=== PATIENT | male | born 1995 | race Caucasian/White ===

== ENCOUNTER 2018-03-04 08:23 | Inpatient (IN) ==
[2018-03-04] MEDS ORDERED: Propofol 1000 mg/100 ml Inj 1,000 MG/100 ML BOTTLE ONE (08:49)
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
--- NOTE | 2018-03-04 09:05 | XR ---
EXAM DATE: 03/04/2018 8:59 AM EST AGE/SEX: 89 years / Male INDICATIONS: Post intubation CLINICAL DATA: This is the patient's subsequent encounter. Patient reports that signs and symptoms h ave been present for 1 day and indicates a pain score of Nonresponsive. MEDICAL/SURGICAL HISTORY: Non-responsive. Non-responsive. COMPARISON: [facility] – [place], [place]ST 1V SINGLE AP, 03/04/2018. . FINDINGS: Single AP view of the chest with the exam performed on a spinal board. There is an endotracheal tube positioned at the level of the clavicles, appropriate. The lungs are clear. Heart size is normal. No abnormal widening of the mediastinum. There is concern for a nondisplaced fracture involving the righ t lateral third and fourth ribs. CONCLUSION: Endotracheal tube at the level of the clavicles. Concern for nondisplaced fractures of the right thir d and fourth ribs. No visible pneumothorax. Electronically signed by: Narda Navarro MD 03/04/2018 9:04 AM EST
[2018-03-04 09:17] LABS: Baso # (Auto) 0.1 th/mm3 (0.0-0.2); Baso % (Auto) 0.4 % (0.0-2.0); Eos # (Auto) 0.1 th/mm3 (0.0-0.4); Eos % (Auto) 0.3 % (0.0-4.0); Hematocrit 40.6 % (39.0-51.0); Lymph # (Auto) 5.5 th/mm3 (1.0-4.8); Lymph % (Auto) 23.7 % (9.0-44.0); Mean Corpuscular HGB Conc 34.6 % (32.0-36.0); Mean Corpuscular Hemoglobin 30.1 pg (27.0-34.0); Mean Corpuscular Volume 87.2 fL (80.0-100.0); Mean Platelet Volume 9.4 fL (7.0-11.0); Mono % (Auto) 4.1 % (0.0-8.0); Neut # (Auto) 16.7 th/mm3 (1.8-7.7); Neut % (Auto) 71.5 % (16.0-70.0); Platelet Count 239 th/mm3 (150-450); Red Blood Count 4.66 mil/mm3 (4.50-5.90); Red Cell Distribution Width 12.7 % (11.6-17.2); White Blood Count 23.4 th/mm3 (4.0-11.0)
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
[2018-03-04 09:28] LABS: Activated Partial Thrombo Time 22.4 sec (23.4-31.7); INR 1.1 Ratio; Prothrombin Time 11.1 sec (9.8-11.6)
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
[2018-03-04 09:57] LABS: Lymphocytes 25 % (9-44); Monocytes 4 % (0-8); Platelet Estimate Normal (Normal); Platelet Morphology Normal (Normal)
[2018-03-04 09:58] LABS: RBC Morphology Normal (Normal)
[2018-03-04] MEDS ORDERED: levETIRAcetam 1000mg/100mL Inj 100 ML IV.SIG ONE (10:00)
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
[2018-03-04] MEDS ORDERED: Potassium Chloride 25 MEQ Effervescent Tablet PO PRN (10:21)
[2018-03-04] MEDS ORDERED: Potassium Chlor 20 mEq Premix 20 MEQ/100 ML PIGGYBACK IV.SIG PRN ×2 (10:21)
[2018-03-04] MEDS ORDERED: Magnesium Sulfate Inj 4 GM in Sodium Chlor 0.9% Inj 92 ML IV.SIG PRN (10:21)
[2018-03-04] MEDS ORDERED: Potassium Phosphate 500 MG Soluble Tablet PO PRN ×2 (10:21)
[2018-03-04] MEDS ORDERED: Sodium Phosphate Inj 30 MMOL in Sodium Chlor 0.9% Inj 250 ML IV.SIG PRN (10:21)
[2018-03-04] MEDS ORDERED: Potassium Chlor 40 mEq Premix 40 MEQ/100 ML PIGGYBACK IV.SIG PRN ×2 (10:21)
[2018-03-04] MEDS ORDERED: Magnesium Sulfate Inj 2 GM in Sodium Chlor 0.9% Inj 96 ML IV.SIG PRN (10:21)
[2018-03-04] MEDS ORDERED: Magnesium Oxide 400 MG Tablet PO PRN (10:21)
[2018-03-04] MEDS ORDERED: Potassium Phosphate Inj 30 MMOL in Sodium Chlor 0.9% Inj 250 ML IV.SIG PRN (10:21)
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
[2018-03-04 11:35] LABS: ABG Base Excess -4.6 mmol/L (-2-2); ABG PCO2 44 mmHg (38-42); ABG PO2 536 mmHg (61-120)
[2018-03-04] MEDS: fentaNYL 10 mcg/mL Premix Drip 2,500 MCG/250 ML BAG IV.SIG PRN (12:00)
[2018-03-04] MEDS: Propofol 1000 mg/100 ml Inj 1,000 MG/100 ML BOTTLE IV.CONT PRN ×2 (12:01→13:52)
[2018-03-04] MEDS: Sod Chloride 0.9% Inj 1,000 ML IV.CONT SCH ×2 (12:02→17:03)
[2018-03-04] MEDS: Oral Hygiene Kit OROPHARYNG SCH ×2 (12:02→15:57)
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
[2018-03-04 12:47] LABS: Bilirubin,Urine Negative (Negative); Clarity,Urine Clear (Clear); Color,Urine Yellow (Yellw/Straw); Glucose,Urine (UA) 50 mg/dL (Negative); Leukocyte Esterase,Urine Negative (Negative); Mucus,Urine Few /lpf (Occasional); Nitrite,Urine Negative (Negative); Specific Gravity,Urine 1.056 (1.002-1.035); Squamous Epithelial Cell,Urine <1 /hpf (0-5)
[2018-03-04 12:52] LABS: Amphetamine Screen,Urine Neg (Neg); Barbiturate Screen,Urine Neg (Neg); Cannabinoid Screen,Urine Neg (Neg); Cocaine Screen,Urine Neg (Neg)
[2018-03-04 13:06] LABS: Opiate Screen,Urine Neg (Neg)
[2018-03-04] MEDS: Pantoprazole Inj 40 MG Vial IV.PUSH SCH (13:18)
[2018-03-04 13:22] LABS: Carbon Dioxide 24.6 meq/L (21.0-32.0); Potassium 3.8 meq/L (3.5-5.1)
[2018-03-04 13:39] LABS: Calcium-Albumin Corrected 7.6 mg/dL (8.5-10.1)
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
[2018-03-04] MEDS: Acetaminophen 325 MG Tablet PO PRN (17:30)
[2018-03-04 18:05] LABS: Sodium 142 meq/L (136-145)
--- NOTE | 2018-03-04 18:49 | MP ---
cc: Shauna Cordoba MD DATE OF OPERATION: PREOPERATIVE DIAGNOSIS: Brain trauma. POSTOPERATIVE DIAGNOSIS: Brain trauma. PROCEDURE: Triple lumen placement, left subclavian. SURGEON: Shauna Cordoba MD ANESTHESIA: 1% Xylocaine. DESCRIPTION OF PROCEDURE: The patient was prepped and draped in the usual fashion. The area infiltrated with 1% Xylocaine. Needle inserted left subclavian vein. Through the needle, the J-wire was guided. Over the J-wire, dilator and triple lumen were placed. Triple lumen sutured in place with 2-0 silk. Chest x-ray obtained. Shauna Cordoba MD SJ/sv , 04:58 PM , 05:02 PM
--- NOTE | 2018-03-04 20:49 | MG ---
cc: Clem Avila MD ELECTROENCEPHALOGRAM RECORD NUMBER: [id number]. DESCRIPTION: Generalized 1-3 Hz delta activity with spindles noted, 10-30 microvolts. No significant lateralizing features. No significant driving with photic stimulation. Single lead EKG showing a sinus rhythm, tachycardia. INTERPRETATION: Moderate encephalopathy. Stage II sleep. She may be pharmacologically induced. No epileptic activity. Clinical correlation. Clem Avila MD MG/ts , 08:22 PM , 08:26 PM
[2018-03-04] MEDS: Docusate Sodium 100 MG Capsule PO SCH (20:56)
[2018-03-04] MEDS ORDERED: levETIRAcetam 500mg/100mL Inj 100 ML IV.SIG SCH (21:00)
[2018-03-04] MEDS: Chlorhexidine 0.12% Oral Kit 15 ML UDC OROPHARYNG SCH (21:00)
[2018-03-05] MEDS: Oral Hygiene Kit OROPHARYNG SCH ×4 (01:04→15:46)
[2018-03-05 01:08] LABS: Albumin 2.8 g/dL (3.4-5.0); Calcium 6.9 mg/dL (8.5-10.1); Carbon Dioxide 25.9 meq/L (21.0-32.0); Potassium 3.9 meq/L (3.5-5.1); Total Protein 5.5 g/dL (6.4-8.2)
[2018-03-05] MEDS: Sod Chloride 0.9% Inj 1,000 ML IV.CONT SCH ×2 (03:04→16:13)
[2018-03-05] MEDS: Chlorhexidine Gluconate 2% 1 Pack (2 Cloths) TOPICAL SCH (03:07)
[2018-03-05] MEDS ORDERED: Chlorhexidine Gluconate 2% 1 Pack (2 Cloths) TOPICAL PRN (04:00)
[2018-03-05 05:59] LABS: ABG Base Excess -1.7 mmol/L (-2-2); ABG PCO2 41 mmHg (38-42); ABG PO2 136 mmHg (61-120)
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
[2018-03-05 06:36] LABS: Baso % (Auto) 0.1 % (0.0-2.0); Hematocrit 24.6 % (39.0-51.0); Hemoglobin 8.8 gm/dL (13.0-17.0); Lymph # (Auto) 0.9 th/mm3 (1.0-4.8); Lymph % (Auto) 8.8 % (9.0-44.0); Mean Corpuscular HGB Conc 35.9 % (32.0-36.0); Mean Corpuscular Hemoglobin 30.6 pg (27.0-34.0); Mean Corpuscular Volume 85.4 fL (80.0-100.0); Mean Platelet Volume 8.8 fL (7.0-11.0); Mono # (Auto) 0.8 th/mm3 (0.0-0.9); Mono % (Auto) 8.4 % (0.0-8.0); Neut # (Auto) 8.3 th/mm3 (1.8-7.7); Neut % (Auto) 82.7 % (16.0-70.0); Platelet Count 116 th/mm3 (150-450); Red Blood Count 2.88 mil/mm3 (4.50-5.90); White Blood Count 10.1 th/mm3 (4.0-11.0)
[2018-03-05 06:51] LABS: Sodium 142 meq/L (136-145)
[2018-03-05] MEDS: Chlorhexidine 0.12% Oral Kit 15 ML UDC OROPHARYNG SCH ×2 (08:00→20:04)
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
[2018-03-05] MEDS ORDERED: levETIRAcetam 500mg/100mL Inj 100 ML IV.SIG SCH (09:00)
[2018-03-05] MEDS: Docusate Sodium 100 MG Capsule PO SCH ×2 (09:58→20:18)
[2018-03-05] MEDS: Pantoprazole Inj 40 MG Vial IV.PUSH SCH (09:59)
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
[2018-03-05 12:20] LABS: Sodium 144 meq/L (136-145)
[2018-03-05] MEDS: Propofol 1000 mg/100 ml Inj 1,000 MG/100 ML BOTTLE IV.CONT PRN (15:21)
[2018-03-05] MEDS: fentaNYL 10 mcg/mL Premix Drip 2,500 MCG/250 ML BAG IV.SIG PRN (15:21)
--- NOTE | 2018-03-05 15:38 | ECG ---
Date Performed: 03/04/2018 Time Performed: 09:44:06 PTAGE: 89 years EKG: Sinus tachycardia. Right bundle branch block Nonspecific ST wave change Abnormal ECG NO PREVIOUS TRACING DOCTOR: Ayush Laird Interpretating Date/Time 03/05/2018 15:37:57
[2018-03-06] MEDS: Oral Hygiene Kit OROPHARYNG SCH ×4 (00:07→16:31)
[2018-03-06 00:30] LABS: Albumin 2.3 g/dL (3.4-5.0); Calcium 7.2 mg/dL (8.5-10.1); Potassium 3.7 meq/L (3.5-5.1); Total Protein 5.3 g/dL (6.4-8.2)
[2018-03-06] MEDS: Chlorhexidine Gluconate 2% 1 Pack (2 Cloths) TOPICAL SCH (04:07)
--- NOTE | 2018-03-06 04:45 | XR ---
EXAM DATE: 03/06/2018 4:32 AM EST AGE/SEX: 89 years / Male INDICATIONS: Respiratory distress. CLINICAL DATA: This is the patient's subsequent encounter. Patient reports that signs and symptoms h ave been present for 3 days and indicates a pain score of Nonresponsive. MEDICAL/SURGICAL HISTORY: . Intracranial hemorrhage. Thoracic fracture. None. COMPARISON: [facility] [place], CHEST 1V SINGLE AP, 03/05/2018. . FINDINGS: Single AP view the chest. Endotracheal tube, nasogastric tube, and left subclavian central venous cat heter remain in place. Decrease in right lung base opacity. No evidence of pleural effusion or pneumo thorax. Cardiomediastinal silhouette within normal limits. CONCLUSION: Decreased medial right lung base pulmonary parenchymal opacity. Electronically signed by: Pawan Win MD 03/06/2018 4:44 AM EST
[2018-03-06] MEDS: Propofol 1000 mg/100 ml Inj 1,000 MG/100 ML BOTTLE IV.CONT PRN ×2 (05:21→16:58)
[2018-03-06 05:30] LABS: ABG Base Excess 0.8 mmol/L (-2-2); ABG PCO2 40 mmHg (38-42); ABG PO2 167 mmHg (61-120)
[2018-03-06 06:23] LABS: Baso % (Auto) 0.2 % (0.0-2.0); Lymph # (Auto) 0.7 th/mm3 (1.0-4.8); Lymph % (Auto) 8.1 % (9.0-44.0); Mean Corpuscular Hemoglobin 30.8 pg (27.0-34.0); Mean Platelet Volume 8.8 fL (7.0-11.0); Mono # (Auto) 0.8 th/mm3 (0.0-0.9); Mono % (Auto) 9.5 % (0.0-8.0); Neut # (Auto) 7.1 th/mm3 (1.8-7.7); Neut % (Auto) 82.2 % (16.0-70.0); Platelet Count 97 th/mm3 (150-450); Red Blood Count 2.24 mil/mm3 (4.50-5.90); Red Cell Distribution Width 12.9 % (11.6-17.2); White Blood Count 8.6 th/mm3 (4.0-11.0)
[2018-03-06 06:30] LABS: Mean Corpuscular HGB Conc 36.2 % (32.0-36.0)
[2018-03-06 06:33] LABS: Hemoglobin 6.9 gm/dL (13.0-17.0)
[2018-03-06 06:45] LABS: Sodium 148 meq/L (136-145)
--- NOTE | 2018-03-06 06:53 | CT ---
EXAM DATE: 03/06/2018 6:47 AM EST AGE/SEX: 89 years / Male INDICATIONS: Evaluate left hip fracture. CLINICAL DATA: This is the patient's initial encounter. Patient reports that signs and symptoms have been present for 1 day and indicates a pain score of Nonresponsive. MEDICAL/SURGICAL HISTORY: Non-responsive. Non-responsive. RADIATION DOSE: 9.86 CTDI (mGy) ; Reconstructed from previous dataset, no dose COMPARISON: No prior exams available for comparison. TECHNIQUE: Multiple contiguous axial images were acquired using a multirow detector CT scanner witho ut contrast. Multiplanar reconstruction was performed in the sagittal and coronal planes. Using aut omated exposure control and adjustment of the mA and/or kV according to patient size, radiation dose was kept as low as reasonably achievable to obtain optimal diagnostic quality images. DICOM format i mage data is available electronically for review and comparison. FINDINGS: Comminuted fracture of the left acetabulum with involvement of the superior, medial, and posterior wa lls. 4.8 x 1.8 cm lateral superior acetabular bone fragment with 2.3 cm lateral displacement. Disrupt ion of the articular cortex is noted in multiple locations. There is posterior dislocation of the fem oral head and bone fragments interposed between the femoral head and acetabular articular surface. La rge left hip joint effusion. No evidence of fracture extension into the iliac wing or ischemia. Sacro iliac joints are within normal limits. Right hip is within normal limits. CONCLUSION: Comminuted acetabular fracture with posterior dislocation of the femoral head. Electronically signed by: Pawan Win MD 03/06/2018 6:52 AM EST
[2018-03-06] MEDS ORDERED: Sodium Chlor 0.9% Inj 250 ML IV.SIG SCH (08:00)
[2018-03-06] MEDS: Chlorhexidine 0.12% Oral Kit 15 ML UDC OROPHARYNG SCH ×2 (08:03→20:44)
[2018-03-06] MEDS: Docusate Sodium 100 MG Capsule PO SCH ×2 (08:03→20:18)
[2018-03-06] MEDS: Sod Chloride 0.9% Inj 1,000 ML IV.CONT SCH ×2 (08:12→11:22)
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
[2018-03-06 10:06] LABS: Platelet Morphology Normal (Normal)
[2018-03-06] MEDS: Pantoprazole Inj 40 MG Vial IV.PUSH SCH (10:26)
[2018-03-06 10:46] LABS: Hematocrit 25.3 % (39.0-51.0); Hemoglobin 8.8 gm/dL (13.0-17.0)
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
[2018-03-06] MEDS: Acetaminophen 325 MG Tablet PO PRN (20:44)
[2018-03-06] MEDS: fentaNYL 10 mcg/mL Premix Drip 2,500 MCG/250 ML BAG IV.SIG PRN (21:34)
[2018-03-07] MEDS: Propofol 1000 mg/100 ml Inj 1,000 MG/100 ML BOTTLE IV.CONT PRN ×4 (00:45→18:38)
[2018-03-07] MEDS: Oral Hygiene Kit OROPHARYNG SCH ×4 (01:56→17:35)
[2018-03-07] MEDS: Chlorhexidine Gluconate 2% 1 Pack (2 Cloths) TOPICAL SCH (04:17)
[2018-03-07 05:03] LABS: Baso % (Auto) 0.2 % (0.0-2.0); Eos % (Auto) 0.1 % (0.0-4.0); Hemoglobin 8.3 gm/dL (13.0-17.0); Lymph # (Auto) 0.9 th/mm3 (1.0-4.8); Lymph % (Auto) 10.2 % (9.0-44.0); Mean Corpuscular Volume 80.2 fL (80.0-100.0); Mean Platelet Volume 8.2 fL (7.0-11.0); Mono # (Auto) 0.8 th/mm3 (0.0-0.9); Mono % (Auto) 8.2 % (0.0-8.0); Neut # (Auto) 7.6 th/mm3 (1.8-7.7); Neut % (Auto) 81.3 % (16.0-70.0); Platelet Count 106 th/mm3 (150-450); Red Blood Count 2.86 mil/mm3 (4.50-5.90); Red Cell Distribution Width 17.8 % (11.6-17.2); White Blood Count 9.3 th/mm3 (4.0-11.0)
[2018-03-07 05:09] LABS: ABG Base Excess 1.8 mmol/L (-2-2); ABG PCO2 43 mmHg (38-42); ABG PO2 61 mmHg (61-120)
[2018-03-07] MEDS: Sod Chloride 0.9% Inj 1,000 ML IV.CONT SCH (05:14)
--- NOTE | 2018-03-07 05:14 | XR ---
EXAM DATE: 03/07/2018 5:02 AM EST AGE/SEX: 89 years / Male INDICATIONS: Respiratory distress. CLINICAL DATA: This is the patient's subsequent encounter. Patient reports that signs and symptoms h ave been present for 4 - 6 days and indicates a pain score of Nonresponsive. MEDICAL/SURGICAL HISTORY: . Intracranial hemorrhage. Thoracic fracture. None. COMPARISON: C, CHEST 1V SINGLE AP, 03/06/2018. . FINDINGS: Single AP view of the chest. Endotracheal tube, nasogastric tube, left subclavian central venous cath eter remain in place. Increased confluent diffuse right lung opacity with lower lung zone predominanc e. Mild lower lung zone left lung opacity now seen. CONCLUSION: Increased bilateral pulmonary opacity right greater than left. Difficult diagnosis is asymmetric pulm onary edema versus infection. Electronically signed by: Pawan iWn MD 03/07/2018 5:12 AM EST
[2018-03-07 05:16] LABS: Mean Corpuscular HGB Conc 36.2 % (32.0-36.0)
[2018-03-07 05:37] LABS: Albumin 2.3 g/dL (3.4-5.0); Calcium 7.2 mg/dL (8.5-10.1); Carbon Dioxide 26.5 meq/L (21.0-32.0); Potassium 3.4 meq/L (3.5-5.1); Total Protein 5.6 g/dL (6.4-8.2)
[2018-03-07] MEDS: Acetaminophen 325 MG Tablet PO PRN ×2 (06:04→18:30)
--- NOTE | 2018-03-07 06:45 | P.PNOP ---
Subjective Interval history: s/p left acetabulum fracture stabilizing. trauma has cleared patient for surgery Physical Exam Vital signs: Vital Signs 03/06/18 07:00 03/06/18 07:30 03/06/18 08:00 Temperature 100.8 F H 100.6 F H 100.6 F H Pulse Rate 103 H 108 H 105 H Respiratory Rate 19 24 18 Blood Pressure 137/65 141/66 H 133/65 Pulse Oximetry 100 100 100 03/06/18 08:30 03/06/18 08:39 03/06/18 08:53 Temperature 100.6 F H 100.6 F H Pulse Rate 99 H 94 H 95 H Respiratory Rate 18 18 18 Blood Pressure 130/65 130/65 Pulse Oximetry 100 100 100 03/06/18 09:00 03/06/18 09:04 03/06/18 09:06 Temperature 100.4 F H 100.6 F H 100.6 F H Pulse Rate 100 H 97 H 96 H Respiratory Rate 18 18 18 Blood Pressure 131/67 131/67 131/67 Pulse Oximetry 100 100 100 03/06/18 09:30 03/06/18 09:35 03/06/18 10:00 Temperature 100.4 F H 100.6 F H 100.4 F H Pulse Rate 98 H 93 H 95 H Respiratory Rate 18 18 18 Blood Pressure 129/65 129/65 128/67 Pulse Oximetry 100 100 100 03/06/18 10:07 03/06/18 11:00 03/06/18 12:00 Temperature 100.4 F H 100.6 F H 100.8 F H Pulse Rate 99 H 96 H 99 H Respiratory Rate 18 18 18 Blood Pressure 126/65 129/69 128/63 Pulse Oximetry 100 100 100 03/06/18 12:09 03/06/18 13:00 03/06/18 14:00 Temperature 100.9 F H 100.9 F H Pulse Rate 102 H 102 H Respiratory Rate 18 18 18 Blood Pressure 134/70 130/61 Pulse Oximetry 100 100 100 03/06/18 15:00 03/06/18 16:00 03/06/18 17:00 Temperature 100.8 F H 100.8 F H 100.9 F H Pulse Rate 105 H 111 H 110 H Respiratory Rate 18 18 18 Blood Pressure 132/69 136/64 135/64 Pulse Oximetry 100 99 97 03/06/18 17:20 03/06/18 17:21 03/06/18 18:00 Temperature 101.1 F H Pulse Rate 110 H 114 H Respiratory Rate 18 18 18 Blood Pressure 134/65 Pulse Oximetry 98 98 03/06/18 19:00 03/06/18 20:00 03/06/18 20:25 Temperature 101.1 F H 101.1 F H 101.5 F H Pulse Rate 106 H 103 H 138 H Respiratory Rate 18 18 30 H Blood Pressure 135/67 136/67 174/80 H Pulse Oximetry 100 100 03/06/18 20:29 03/06/18 20:36 03/06/18 20:41 Temperature 101.7 F H 101.7 F H Pulse Rate 121 H 109 H 108 H Respiratory Rate 18 18 18 Blood Pressure 145/58 H 150/69 H Pulse Oximetry 98 03/06/18 20:45 03/06/18 21:00 03/06/18 21:15 Temperature 101.8 F H 101.8 F H 101.7 F H Pulse Rate 110 H 114 H 111 H Respiratory Rate 18 18 18 Blood Pressure 150/69 H 143/63 H 128/56 L Pulse Oximetry 97 97 03/06/18 21:30 03/06/18 21:45 03/06/18 22:00 Temperature 101.3 F H 100.9 F H 100.8 F H Pulse Rate 110 H 110 H 108 H Respiratory Rate 18 18 18 Blood Pressure 125/56 L 123/59 L 124/57 L Pulse Oximetry 98 98 98 03/06/18 22:15 03/06/18 22:30 03/06/18 22:45 Temperature 100.6 F H 100.4 F H 100.4 F H Pulse Rate 107 H 107 H 106 H Respiratory Rate 18 18 18 Blood Pressure 121/56 L 124/58 L 127/59 L Pulse Oximetry 98 98 98 03/06/18 23:00 03/06/18 23:15 03/06/18 23:30 Temperature 100.2 F H 100.0 F H 100.0 F H Pulse Rate 105 H 103 H 100 H Respiratory Rate 18 18 18 Blood Pressure 125/58 L 127/61 124/59 L Pulse Oximetry 99 99 100 03/06/18 23:45 03/07/18 00:00 03/07/18 00:15 Temperature 99.9 F H 99.9 F H 99.9 F H Pulse Rate 98 H 98 H 101 H Respiratory Rate 18 18 18 Blood Pressure 125/61 123/62 126/65 Pulse Oximetry 100 100 100 03/07/18 00:30 03/07/18 00:44 03/07/18 00:45 Temperature 100.0 F H 100.4 F H Pulse Rate 101 H 111 H Respiratory Rate 18 21 22 Blood Pressure 134/69 140/70 Pulse Oximetry 100 96 97 03/07/18 01:00 03/07/18 01:02 03/07/18 01:15 Temperature 100.6 F H 100.6 F H 100.8 F H Pulse Rate 106 H 105 H 105 H Respiratory Rate 20 23 18 Blood Pressure 128/63 127/66 Pulse Oximetry 95 95 95 03/07/18 01:30 03/07/18 01:45 03/07/18 02:00 Temperature 100.8 F H 100.6 F H 100.4 F H Pulse Rate 103 H 103 H 103 H Respiratory Rate 18 18 18 Blood Pressure 130/66 126/61 133/63 Pulse Oximetry 96 97 98 03/07/18 02:15 03/07/18 02:30 03/07/18 02:45 Temperature 100.2 F H 100.2 F H 100.2 F H Pulse Rate 102 H 102 H 100 H Respiratory Rate 18 18 18 Blood Pressure 134/62 124/59 L 126/62 Pulse Oximetry 99 99 100 03/07/18 03:00 03/07/18 03:15 03/07/18 03:30 Temperature 100.4 F H 100.4 F H 100.4 F H Pulse Rate 97 H 97 H 97 H Respiratory Rate 18 18 10 L Blood Pressure 125/60 122/60 122/60 Pulse Oximetry 99 100 99 03/07/18 03:45 03/07/18 04:00 03/07/18 04:15 Temperature 100.4 F H 100.6 F H 100.8 F H Pulse Rate 98 H 100 H 102 H Respiratory Rate 0 L 0 L 0 L Blood Pressure 125/62 128/61 135/65 Pulse Oximetry 100 100 99 03/07/18 04:30 03/07/18 04:45 03/07/18 05:00 Temperature 100.9 F H 101.1 F H 101.3 F H Pulse Rate 103 H 102 H 103 H Respiratory Rate 18 18 18 Blood Pressure 133/66 137/68 139/69 Pulse Oximetry 99 98 98 03/07/18 05:15 03/07/18 05:30 03/07/18 05:45 Temperature 101.3 F H 101.5 F H 101.3 F H Pulse Rate 100 H 102 H 104 H Respiratory Rate 18 18 19 Blood Pressure 139/68 135/63 138/65 Pulse Oximetry 97 100 99 03/07/18 06:00 Temperature 101.3 F H Pulse Rate 96 H Respiratory Rate 18 Blood Pressure 129/62 Pulse Oximetry 99 Intake & Output 03/06/18 03/06/18 03/07/18 06:59 18:59 06:59 Intake Total 705 / 705 2358 / 2358 2049 / 2049 Output Total 575 / 575 650 / 650 500 / 500 Balance 130 / 130 1708 / 1708 1550 / 1550 Weight 73.5 kg 83.7 kg Intake: IV 705 / 705 1385 / 1385 1555 / 1555 Diprivan 1000 mg/100 ml Inj 1, 100 / 100 100 / 100 200 / 200 000 mg In 100 ml @ 5 MCG/KG/MIN 1.989 mls/hr IV.CONT TITRATE PRN Rx#:[id number] NS Inj 1,000 ML @ 50 mls/hr IV. 1000 / 1000 1000 / 1000 CONT .Q20H [facility] Rx#:[id number] Sodium Chloride 3% Inj 500 ML @ 500 / 500 30 / 30 30 mls/hr IV.SIG CONT PRN Rx#: [id number] NS Inj 250 ML @ 15 mls/hr IV. 150 / 150 SIG ONCE [facility] Rx#:[id number] fentaNYL 10 mcg/mL Premix Drip 250 / 250 2,500 mcg In 250 ml @ 50 MCG/HR 5 mls/hr IV.SIG TITRATE PRN Rx #:[id number] Keppra Inj 500 MG In NS Inj 100 105 / 105 105 / 105 105 / 105 ML @ 400 mls/hr IV.SIG Q12H [facility] Rx#:[id number] Tube Feeding 173 / 173 495 / 495 Intake (Blood Product) Amt 800 / 800 Rbc As-3 Leukoreduced Unit 400 / 400 [id number] Rbc As-3 Leukoreduced Unit 400 / 400 [id number] Output: Stool 0 / 0 0 / 0 Urine Amount (Catheter) 475 / 475 650 / 650 500 / 500 Indwelling Urethral Catheter 475 / 475 650 / 650 500 / 500 Gastric Drainage 100 / 100 0 / 0 Right Nare Nasogastric Tube 100 / 100 0 / 0 Other: Date of Last Bowel Movement 03/07/18 # Bowel Movements 0 0 2 Narrative: LLE: +cap refill distally. localizes to pain when hip moved. - Urinary Catheter Management Indwelling Urethral Catheter Cath placed during this visit: yes Reason for continuing: Hourly intake/output Insertion date: 03/04/18 Insertion time: 10:00 Results - Labs CBC & Chem 7: 03/07/18 04:40 03/07/18 04:40 Laboratory Results - last 24 hr 03/06/18 03/06/18 03/06/18 05:32 05:32 07:29 WBC RBC Hgb Hct MCV MCH MCHC RDW Plt Count MPV Prelim Diff (Auto) Neut % (Auto) Lymph % (Auto) Marshall % (Auto) Eos % (Auto) Baso % (Auto) Neut # (Auto) Lymph # (Auto) Marshall # (Auto) Eos # (Auto) Baso # (Auto) WBC Differential . Diff Scan Auto diff confirmed Differential Comment Platelet Estimate Low L Platelet Morphology Normal Puncture Site Patient Temperature O2 Saturation ABG pH ABG pCO2 ABG pO2 ABG HCO3 ABG O2 Content ABG Base Excess ABG Methemoglobin Nico Test Hemoglobin Carboxyhemoglobin O2 Delivery Device Vent Setting Inspired O2 Critical Value Sodium 148 H Potassium Chloride Carbon Dioxide Anion Gap BUN Creatinine Estimated GFR Random Glucose Osmolality 302 H Calcium Prot Corrected Calcium Total Bilirubin AST ALT Alkaline Phosphatase Total Protein Albumin Blood Type Blood Type Recheck Antibody Screen MTS Gel Crossmatch See Detail Bld Prod Order Comment 03/06/18 03/06/18 03/07/18 07:36 10:30 04:40 WBC 9.3 RBC 2.86 L Hgb 8.8 L 8.3 L Hct 25.3 L 23.0 L MCV 80.2 D MCH 29.0 MCHC 36.2 H RDW 17.8 H D Plt Count 106 L MPV 8.2 Prelim Diff (Auto) Slide review pending Neut % (Auto) 81.3 H Lymph % (Auto) 10.2 Marshall % (Auto) 8.2 H Eos % (Auto) 0.1 Baso % (Auto) 0.2 Neut # (Auto) 7.6 Lymph # (Auto) 0.9 L Marshall # (Auto) 0.8 Eos # (Auto) 0.0 Baso # (Auto) 0.0 WBC Differential Diff Scan Differential Comment . Platelet Estimate Platelet Morphology Puncture Site Patient Temperature O2 Saturation ABG pH ABG pCO2 ABG pO2 ABG HCO3 ABG O2 Content ABG Base Excess ABG Methemoglobin Nico Test Hemoglobin Carboxyhemoglobin O2 Delivery Device Vent Setting Inspired O2 Critical Value Sodium Potassium Chloride Carbon Dioxide Anion Gap BUN Creatinine Estimated GFR Random Glucose Osmolality Calcium Prot Corrected Calcium Total Bilirubin AST ALT Alkaline Phosphatase Total Protein Albumin Blood Type Blood Type Recheck Antibody Screen MTS Gel Crossmatch See Detail Bld Prod Order Comment Cancelled 03/07/18 03/07/18 03/07/18 04:40 04:47 05:01 WBC RBC Hgb Hct MCV MCH MCHC RDW Plt Count MPV Prelim Diff (Auto) Neut % (Auto) Lymph % (Auto) Marshall % (Auto) Eos % (Auto) Baso % (Auto) Neut # (Auto) Lymph # (Auto) Marshall # (Auto) Eos # (Auto) Baso # (Auto) WBC Differential Diff Scan Differential Comment Platelet Estimate Platelet Morphology Puncture Site Left radial Patient Temperature 98.6 O2 Saturation 89 L* ABG pH 7.40 ABG pCO2 43 H ABG pO2 61 ABG HCO3 26 ABG O2 Content 11.7 L ABG Base Excess 1.8 ABG Methemoglobin 1.2 Nico Test Present Hemoglobin 9.3 L Carboxyhemoglobin 1.5 O2 Delivery Device Ventilator Vent Setting See comments Inspired O2 30 Critical Value Yes Sodium 146 H Potassium 3.4 L Chloride 115 H Carbon Dioxide 26.5 Anion Gap 5 BUN 13 Creatinine 0.76 Estimated GFR 88 L Random Glucose 152 H Osmolality Calcium 7.2 L* Prot Corrected Calcium 8.0 L Total Bilirubin 0.5 AST 132 H ALT 75 Alkaline Phosphatase 82 Total Protein 5.6 L Albumin 2.3 L Blood Type O Positive Blood Type Recheck Not needed Antibody Screen Negative MTS Gel Crossmatch See Detail Bld Prod Order Comment - Imaging Impressions Hip CT 03/06/18 00:00 CONCLUSION: Comminuted acetabular fracture with posterior dislocation of the femoral head. Chest X-Ray 03/07/18 06:00 CONCLUSION: Increased bilateral pulmonary opacity right greater than left. Difficult diagnosis is asymmetric pulmonary edema versus infection. Assessment and Plan - Assessment and Plan 1) Left Acetabulum Fracture -10lbs bucks traction applied at bedside today -npo after MN -sign consents -plan for surgery with [facility] for ORIF of left acetabulum shruthi
--- NOTE | 2018-03-07 06:46 | P.PNOP ---
Subjective Interval history: s/p left acetabulum fx no changes Physical Exam Vital signs: Vital Signs 03/06/18 07:00 03/06/18 07:30 03/06/18 08:00 Temperature 100.8 F H 100.6 F H 100.6 F H Pulse Rate 103 H 108 H 105 H Respiratory Rate 19 24 18 Blood Pressure 137/65 141/66 H 133/65 Pulse Oximetry 100 100 100 03/06/18 08:30 03/06/18 08:39 03/06/18 08:53 Temperature 100.6 F H 100.6 F H Pulse Rate 99 H 94 H 95 H Respiratory Rate 18 18 18 Blood Pressure 130/65 130/65 Pulse Oximetry 100 100 100 03/06/18 09:00 03/06/18 09:04 03/06/18 09:06 Temperature 100.4 F H 100.6 F H 100.6 F H Pulse Rate 100 H 97 H 96 H Respiratory Rate 18 18 18 Blood Pressure 131/67 131/67 131/67 Pulse Oximetry 100 100 100 03/06/18 09:30 03/06/18 09:35 03/06/18 10:00 Temperature 100.4 F H 100.6 F H 100.4 F H Pulse Rate 98 H 93 H 95 H Respiratory Rate 18 18 18 Blood Pressure 129/65 129/65 128/67 Pulse Oximetry 100 100 100 03/06/18 10:07 03/06/18 11:00 03/06/18 12:00 Temperature 100.4 F H 100.6 F H 100.8 F H Pulse Rate 99 H 96 H 99 H Respiratory Rate 18 18 18 Blood Pressure 126/65 129/69 128/63 Pulse Oximetry 100 100 100 03/06/18 12:09 03/06/18 13:00 03/06/18 14:00 Temperature 100.9 F H 100.9 F H Pulse Rate 102 H 102 H Respiratory Rate 18 18 18 Blood Pressure 134/70 130/61 Pulse Oximetry 100 100 100 03/06/18 15:00 03/06/18 16:00 03/06/18 17:00 Temperature 100.8 F H 100.8 F H 100.9 F H Pulse Rate 105 H 111 H 110 H Respiratory Rate 18 18 18 Blood Pressure 132/69 136/64 135/64 Pulse Oximetry 100 99 97 03/06/18 17:20 03/06/18 17:21 11/19/18 18:00 Temperature 101.1 F H Pulse Rate 110 H 114 H Respiratory Rate 18 18 18 Blood Pressure 134/65 Pulse Oximetry 98 98 03/06/18 19:00 03/06/18 20:00 03/06/18 20:25 Temperature 101.1 F H 101.1 F H 101.5 F H Pulse Rate 106 H 103 H 138 H Respiratory Rate 18 18 30 H Blood Pressure 135/67 136/67 174/80 H Pulse Oximetry 100 100 03/06/18 20:29 03/06/18 20:36 03/06/18 20:41 Temperature 101.7 F H 101.7 F H Pulse Rate 121 H 109 H 108 H Respiratory Rate 18 18 18 Blood Pressure 145/58 H 150/69 H Pulse Oximetry 98 03/06/18 20:45 03/06/18 21:00 03/06/18 21:15 Temperature 101.8 F H 101.8 F H 101.7 F H Pulse Rate 110 H 114 H 111 H Respiratory Rate 18 18 18 Blood Pressure 150/69 H 143/63 H 128/56 L Pulse Oximetry 97 97 03/06/18 21:30 03/06/18 21:45 03/06/18 22:00 Temperature 101.3 F H 100.9 F H 100.8 F H Pulse Rate 110 H 110 H 108 H Respiratory Rate 18 18 18 Blood Pressure 125/56 L 123/59 L 124/57 L Pulse Oximetry 98 98 98 03/06/18 22:15 03/06/18 22:30 03/06/18 22:45 Temperature 100.6 F H 100.4 F H 100.4 F H Pulse Rate 107 H 107 H 106 H Respiratory Rate 18 18 18 Blood Pressure 121/56 L 124/58 L 127/59 L Pulse Oximetry 98 98 98 03/06/18 23:00 03/06/18 23:15 03/06/18 23:30 Temperature 100.2 F H 100.0 F H 100.0 F H Pulse Rate 105 H 103 H 100 H Respiratory Rate 18 18 18 Blood Pressure 125/58 L 127/61 124/59 L Pulse Oximetry 99 99 100 03/06/18 23:45 03/07/18 00:00 03/07/18 00:15 Temperature 99.9 F H 99.9 F H 99.9 F H Pulse Rate 98 H 98 H 101 H Respiratory Rate 18 18 18 Blood Pressure 125/61 123/62 126/65 Pulse Oximetry 100 100 100 03/07/18 00:30 03/07/18 00:44 03/07/18 00:45 Temperature 100.0 F H 100.4 F H Pulse Rate 101 H 111 H Respiratory Rate 18 21 22 Blood Pressure 134/69 140/70 Pulse Oximetry 100 96 97 03/07/18 01:00 03/07/18 01:02 03/07/18 01:15 Temperature 100.6 F H 100.6 F H 100.8 F H Pulse Rate 106 H 105 H 105 H Respiratory Rate 20 23 18 Blood Pressure 128/63 127/66 Pulse Oximetry 95 95 95 03/07/18 01:30 03/07/18 01:45 03/07/18 02:00 Temperature 100.8 F H 100.6 F H 100.4 F H Pulse Rate 103 H 103 H 103 H Respiratory Rate 18 18 18 Blood Pressure 130/66 126/61 133/63 Pulse Oximetry 96 97 98 03/07/18 02:15 03/07/18 02:30 03/07/18 02:45 Temperature 100.2 F H 100.2 F H 100.2 F H Pulse Rate 102 H 102 H 100 H Respiratory Rate 18 18 18 Blood Pressure 134/62 124/59 L 126/62 Pulse Oximetry 99 99 100 03/07/18 03:00 03/07/18 03:15 03/07/18 03:30 Temperature 100.4 F H 100.4 F H 100.4 F H Pulse Rate 97 H 97 H 97 H Respiratory Rate 18 18 10 L Blood Pressure 125/60 122/60 122/60 Pulse Oximetry 99 100 99 03/07/18 03:45 03/07/18 04:00 03/07/18 04:15 Temperature 100.4 F H 100.6 F H 100.8 F H Pulse Rate 98 H 100 H 102 H Respiratory Rate 0 L 0 L 0 L Blood Pressure 125/62 128/61 135/65 Pulse Oximetry 100 100 99 03/07/18 04:30 03/07/18 04:45 03/07/18 05:00 Temperature 100.9 F H 101.1 F H 101.3 F H Pulse Rate 103 H 102 H 103 H Respiratory Rate 18 18 18 Blood Pressure 133/66 137/68 139/69 Pulse Oximetry 99 98 98 03/07/18 05:15 03/07/18 05:30 03/07/18 05:45 Temperature 101.3 F H 101.5 F H 101.3 F H Pulse Rate 100 H 102 H 104 H Respiratory Rate 18 18 19 Blood Pressure 139/68 135/63 138/65 Pulse Oximetry 97 100 99 03/07/18 06:00 Temperature 101.3 F H Pulse Rate 96 H Respiratory Rate 18 Blood Pressure 129/62 Pulse Oximetry 99 Intake & Output 03/06/18 03/06/18 03/07/18 06:59 18:59 06:59 Intake Total 705 / 705 2358 / 2358 2049 / 2049 Output Total 575 / 575 650 / 650 500 / 500 Balance 130 / 130 1708 / 1708 1550 / 1550 Weight 73.5 kg 83.7 kg Intake: IV 705 / 705 1385 / 1385 1555 / 1555 Diprivan 1000 mg/100 ml Inj 1, 100 / 100 100 / 100 200 / 200 000 mg In 100 ml @ 5 MCG/KG/MIN 1.989 mls/hr IV.CONT TITRATE PRN Rx#:[id number] NS Inj 1,000 ML @ 50 mls/hr IV. 1000 / 1000 1000 / 1000 CONT .Q20H [facility] Rx#:[id number] Sodium Chloride 3% Inj 500 ML @ 500 / 500 30 / 30 30 mls/hr IV.SIG CONT PRN Rx#: [id number] NS Inj 250 ML @ 15 mls/hr IV. 150 / 150 SIG ONCE [facility] Rx#:[id number] fentaNYL 10 mcg/mL Premix Drip 250 / 250 2,500 mcg In 250 ml @ 50 MCG/HR 5 mls/hr IV.SIG TITRATE PRN Rx #:[id number] Keppra Inj 500 MG In NS Inj 100 105 / 105 105 / 105 105 / 105 ML @ 400 mls/hr IV.SIG Q12H [facility] Rx#:[id number] Tube Feeding 173 / 173 495 / 495 Intake (Blood Product) Amt 800 / 800 Rbc As-3 Leukoreduced Unit 400 / 400 [id number] Rbc As-3 Leukoreduced Unit 400 / 400 [id number] Output: Stool 0 / 0 0 / 0 Urine Amount (Catheter) 475 / 475 650 / 650 500 / 500 Indwelling Urethral Catheter 475 / 475 650 / 650 500 / 500 Gastric Drainage 100 / 100 0 / 0 Right Nare Nasogastric Tube 100 / 100 0 / 0 Other: Date of Last Bowel Movement 03/07/18 # Bowel Movements 0 0 2 Narrative: LLE: +bucks traction. +cap refill - Urinary Catheter Management Indwelling Urethral Catheter Cath placed during this visit: yes Reason for continuing: Hourly intake/output Insertion date: 03/04/18 Insertion time: 10:00 Results - Labs CBC & Chem 7: 03/07/18 04:40 03/07/18 04:40 Laboratory Results - last 24 hr 03/06/18 03/06/18 03/06/18 05:32 05:32 07:29 WBC RBC Hgb Hct MCV MCH MCHC RDW Plt Count MPV Prelim Diff (Auto) Neut % (Auto) Lymph % (Auto) Ida % (Auto) Eos % (Auto) Baso % (Auto) Neut # (Auto) Lymph # (Auto) Ida # (Auto) Eos # (Auto) Baso # (Auto) WBC Differential . Diff Scan Auto diff confirmed Differential Comment Platelet Estimate Low L Platelet Morphology Normal Puncture Site Patient Temperature O2 Saturation ABG pH ABG pCO2 ABG pO2 ABG HCO3 ABG O2 Content ABG Base Excess ABG Methemoglobin Nico Test Hemoglobin Carboxyhemoglobin O2 Delivery Device Vent Setting Inspired O2 Critical Value Sodium 148 H Potassium Chloride Carbon Dioxide Anion Gap BUN Creatinine Estimated GFR Random Glucose Osmolality 302 H Calcium Prot Corrected Calcium Total Bilirubin AST ALT Alkaline Phosphatase Total Protein Albumin Blood Type Blood Type Recheck Antibody Screen MTS Gel Crossmatch See Detail Bld Prod Order Comment 03/06/18 03/06/18 03/07/18 07:36 10:30 04:40 WBC 9.3 RBC 2.86 L Hgb 8.8 L 8.3 L Hct 25.3 L 23.0 L MCV 80.2 D MCH 29.0 MCHC 36.2 H RDW 17.8 H D Plt Count 106 L MPV 8.2 Prelim Diff (Auto) Slide review pending Neut % (Auto) 81.3 H Lymph % (Auto) 10.2 Ida % (Auto) 8.2 H Eos % (Auto) 0.1 Baso % (Auto) 0.2 Neut # (Auto) 7.6 Lymph # (Auto) 0.9 L Ida # (Auto) 0.8 Eos # (Auto) 0.0 Baso # (Auto) 0.0 WBC Differential Diff Scan Differential Comment . Platelet Estimate Platelet Morphology Puncture Site Patient Temperature O2 Saturation ABG pH ABG pCO2 ABG pO2 ABG HCO3 ABG O2 Content ABG Base Excess ABG Methemoglobin Nico Test Hemoglobin Carboxyhemoglobin O2 Delivery Device Vent Setting Inspired O2 Critical Value Sodium Potassium Chloride Carbon Dioxide Anion Gap BUN Creatinine Estimated GFR Random Glucose Osmolality Calcium Prot Corrected Calcium Total Bilirubin AST ALT Alkaline Phosphatase Total Protein Albumin Blood Type Blood Type Recheck Antibody Screen MTS Gel Crossmatch See Detail Bld Prod Order Comment Cancelled 03/07/18 03/07/18 03/07/18 04:40 04:47 05:01 WBC RBC Hgb Hct MCV MCH MCHC RDW Plt Count MPV Prelim Diff (Auto) Neut % (Auto) Lymph % (Auto) Ida % (Auto) Eos % (Auto) Baso % (Auto) Neut # (Auto) Lymph # (Auto) Ida # (Auto) Eos # (Auto) Baso # (Auto) WBC Differential Diff Scan Differential Comment Platelet Estimate Platelet Morphology Puncture Site Left radial Patient Temperature 98.6 O2 Saturation 89 L* ABG pH 7.40 ABG pCO2 43 H ABG pO2 61 ABG HCO3 26 ABG O2 Content 11.7 L ABG Base Excess 1.8 ABG Methemoglobin 1.2 Nico Test Present Hemoglobin 9.3 L Carboxyhemoglobin 1.5 O2 Delivery Device Ventilator Vent Setting See comments Inspired O2 30 Critical Value Yes Sodium 146 H Potassium 3.4 L Chloride 115 H Carbon Dioxide 26.5 Anion Gap 5 BUN 13 Creatinine 0.76 Estimated GFR 88 L Random Glucose 152 H Osmolality Calcium 7.2 L* Prot Corrected Calcium 8.0 L Total Bilirubin 0.5 AST 132 H ALT 75 Alkaline Phosphatase 82 Total Protein 5.6 L Albumin 2.3 L Blood Type O Positive Blood Type Recheck Not needed Antibody Screen Negative MTS Gel Crossmatch See Detail Bld Prod Order Comment - Imaging Impressions Hip CT 03/06/18 00:00 CONCLUSION: Comminuted acetabular fracture with posterior dislocation of the femoral head. Chest X-Ray 03/07/18 06:00 CONCLUSION: Increased bilateral pulmonary opacity right greater than left. Difficult diagnosis is asymmetric pulmonary edema versus infection. Assessment and Plan - Assessment and Plan 1) Left Acetabulum Fracture -plan for surgery with [facility] for ORIF of left acetabulum today
[2018-03-07 07:58] LABS: Dohle Bodies Present; Lymphocytes 8 % (9-44); Monocytes 6 % (0-8); Ovalocytes 1+; Platelet Morphology Normal (Normal)
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
[2018-03-07] MEDS: Docusate Sodium 100 MG Capsule PO SCH ×2 (08:42→21:08)
[2018-03-07] MEDS: Chlorhexidine 0.12% Oral Kit 15 ML UDC OROPHARYNG SCH ×2 (08:42→20:07)
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
[2018-03-07] MEDS ORDERED: ceFAZolin 1 GM Premix Inj 2 GM/100 ML FROZ.PIGGY IV.SIG ONE (09:50)
[2018-03-07] MEDS ORDERED: Heparin - SQ 10,000 UNITS/ML Vial ONE (09:50)
[2018-03-07] MEDS ORDERED: TRANEXAMIC ACID IV.SIG SCH (10:00)
[2018-03-07] MEDS ORDERED: SODIUM CHLOR 0.9% IV.SIG SCH (10:00)
[2018-03-07] MEDS: Pantoprazole Inj 40 MG Vial IV.PUSH SCH (10:36)
[2018-03-07] MEDS ORDERED: fentaNYL Citrate Inj 250 MCG/5 ML Ampul ONE (13:57)
[2018-03-07 14:36] LABS: Activated Partial Thrombo Time 26.3 sec (23.4-31.7); Prothrombin Time 9.9 sec (9.8-11.6)
[2018-03-07] MEDS ORDERED: fentaNYL Citrate Inj 100 MCG/2 ML Ampul ONE ×2 (15:03→15:04)
[2018-03-07] MEDS ORDERED: Tobramycin Sulfate 1,200 MG Vial (for ortho/sterile core) OTHER ONE (15:18)
[2018-03-07] MEDS ORDERED: Post-op Orders (for Pharmacy) OTHER STA (15:43)
[2018-03-07] MEDS ORDERED: Vancomycin Consult Pharmacy 1 EACH OTHER SCH (15:45)
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
[2018-03-07 18:10] LABS: Hematocrit 27.6 % (39.0-51.0); Hemoglobin 10.1 gm/dL (13.0-17.0)
[2018-03-07] MEDS: fentaNYL 10 mcg/mL Premix Drip 2,500 MCG/250 ML BAG IV.SIG PRN (18:37)
[2018-03-07] MEDS: ceFAZolin 2 GM Premix Inj 2 GM/50 ML PIGGYBACK IV.SIG SCH (21:07)
[2018-03-07] MEDS: Senna/Docusate Sodium 8.6/50 MG Tablet PO SCH (21:08)
[2018-03-08] MEDS: Vancomycin Inj 1,000 MG in Sodium Chlor 0.9% Inj 250 ML IV.SIG SCH ×4 (00:57→17:39)
[2018-03-08] MEDS: Oral Hygiene Kit OROPHARYNG SCH ×5 (00:57→23:20)
[2018-03-08] MEDS: Propofol 1000 mg/100 ml Inj 1,000 MG/100 ML BOTTLE IV.CONT PRN (02:30)
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
[2018-03-08] MEDS: ceFAZolin 2 GM Premix Inj 2 GM/50 ML PIGGYBACK IV.SIG SCH ×3 (04:55→20:14)
[2018-03-08] MEDS: Chlorhexidine Gluconate 2% 1 Pack (2 Cloths) TOPICAL SCH (04:55)
[2018-03-08 05:31] LABS: Baso % (Auto) 0.2 % (0.0-2.0); Eos % (Auto) 0.2 % (0.0-4.0); Hemoglobin 9.2 gm/dL (13.0-17.0); Lymph # (Auto) 1.1 th/mm3 (1.0-4.8); Lymph % (Auto) 13.8 % (9.0-44.0); Mean Corpuscular HGB Conc 35.4 % (32.0-36.0); Mean Corpuscular Hemoglobin 28.9 pg (27.0-34.0); Mean Corpuscular Volume 81.7 fL (80.0-100.0); Mono # (Auto) 0.9 th/mm3 (0.0-0.9); Mono % (Auto) 10.6 % (0.0-8.0); Neut # (Auto) 6.3 th/mm3 (1.8-7.7); Neut % (Auto) 75.2 % (16.0-70.0); Platelet Count 112 th/mm3 (150-450); Red Blood Count 3.18 mil/mm3 (4.50-5.90); Red Cell Distribution Width 16.8 % (11.6-17.2); White Blood Count 8.3 th/mm3 (4.0-11.0)
[2018-03-08 06:03] LABS: Anion Gap 7 meq/L (5-15); Blood Urea Nitrogen 13 mg/dL (7-18); Calcium 6.8 mg/dL (8.5-10.1); Carbon Dioxide 26.2 meq/L (21.0-32.0); Chloride 113 meq/L (98-107); Glomerular Filtration Rate Greater Than 89 mL/min (>89); Glucose,Random 150 mg/dL (74-106); Potassium 3.6 meq/L (3.5-5.1); Sodium 146 meq/L (136-145)
[2018-03-08 06:07] LABS: ABG PCO2 37 mmHg (38-42); ABG PO2 78 mmHg (61-120)
[2018-03-08 06:28] LABS: Calcium-Albumin Corrected 7.8 mg/dL (8.5-10.1); Total Protein 5.1 g/dL (6.4-8.2)
--- NOTE | 2018-03-08 06:56 | P.PNOP ---
Subjective Interval history: POD 1 s/p ORIF left acetabulum intubated and sedated. moving extremities Physical Exam Vital signs: Vital Signs 03/07/18 07:00 03/07/18 08:00 03/07/18 09:00 Temperature 100.2 F H Pulse Rate 93 H 89 95 H Respiratory Rate 18 18 Blood Pressure 117/56 L 117/55 L 127/65 Pulse Oximetry 100 99 100 03/07/18 10:00 03/07/18 11:00 03/07/18 11:37 Temperature 100.2 F H 100.4 F H Pulse Rate 88 89 Respiratory Rate 18 18 18 Blood Pressure 120/57 L 122/56 L Pulse Oximetry 100 100 199 H 03/07/18 12:00 03/07/18 17:00 03/07/18 17:40 Temperature 100.4 F H 100.8 F H Pulse Rate 87 99 H 96 H Respiratory Rate 18 18 18 Blood Pressure 123/58 L 141/71 H 131/63 Pulse Oximetry 100 98 98 03/07/18 18:00 03/07/18 18:40 03/07/18 19:00 Temperature 100.9 F H 101.1 F H 101.3 F H Pulse Rate 97 H 96 H 107 H Respiratory Rate 18 Blood Pressure 135/69 133/66 Pulse Oximetry 99 98 98 03/07/18 19:10 03/07/18 19:30 03/07/18 19:35 Temperature 101.1 F H Pulse Rate 101 H 102 H Respiratory Rate 18 19 Blood Pressure 132/65 Pulse Oximetry 99 99 03/07/18 19:40 03/07/18 20:00 03/07/18 20:10 Temperature 100.9 F H 100.8 F H 100.8 F H Pulse Rate 96 H 106 H 112 H Respiratory Rate 16 Blood Pressure 125/59 L 136/67 Pulse Oximetry 98 100 100 03/07/18 20:40 03/07/18 21:00 03/07/18 21:10 Temperature 100.6 F H 100.4 F H 100.4 F H Pulse Rate 102 H 93 H 100 H Respiratory Rate Blood Pressure 135/66 128/63 Pulse Oximetry 100 100 99 03/07/18 21:40 03/07/18 22:00 03/07/18 22:10 Temperature 100.4 F H 100.4 F H 100.4 F H Pulse Rate 104 H 100 H 87 Respiratory Rate Blood Pressure 134/64 129/61 Pulse Oximetry 99 100 100 03/07/18 22:24 03/07/18 22:40 03/07/18 23:00 Temperature 100.2 F H 100.0 F H Pulse Rate 87 90 Respiratory Rate 18 Blood Pressure 120/61 Pulse Oximetry 100 100 99 03/07/18 23:10 03/07/18 23:40 03/08/18 00:00 Temperature 100.0 F H 100.0 F H 99.9 F H Pulse Rate 88 87 87 Respiratory Rate Blood Pressure 120/61 123/64 Pulse Oximetry 100 100 100 03/08/18 00:10 03/08/18 00:40 03/08/18 01:00 Temperature 99.9 F H 100.2 F H 100.2 F H Pulse Rate 90 101 H 103 H Respiratory Rate Blood Pressure 127/67 140/73 Pulse Oximetry 100 100 100 03/08/18 01:10 03/08/18 01:28 03/08/18 01:40 Temperature 99.5 F 100.6 F H Pulse Rate 102 H 114 H Respiratory Rate 18 Blood Pressure 147/71 H 164/90 H Pulse Oximetry 100 100 03/08/18 02:00 03/08/18 02:10 03/08/18 02:40 Temperature 100.2 F H 100.2 F H 100.0 F H Pulse Rate 108 H 110 H 99 H Respiratory Rate Blood Pressure 144/72 H 136/72 Pulse Oximetry 96 95 97 03/08/18 03:00 03/08/18 03:10 03/08/18 03:17 Temperature 100.0 F H 100.0 F H Pulse Rate 86 92 H 89 Respiratory Rate 18 Blood Pressure 130/64 Pulse Oximetry 97 98 03/08/18 03:40 03/08/18 04:00 03/08/18 04:04 Temperature 99.9 F H 99.9 F H Pulse Rate 90 86 Respiratory Rate 16 18 Blood Pressure 120/62 Pulse Oximetry 100 99 100 03/08/18 04:10 03/08/18 04:40 03/08/18 05:00 Temperature 99.7 F H 99.9 F H 99.9 F H Pulse Rate 84 85 101 H Respiratory Rate Blood Pressure 127/64 121/65 Pulse Oximetry 99 100 100 03/08/18 05:10 03/08/18 05:40 Temperature 100.2 F H 100.4 F H Pulse Rate 110 H 106 H Respiratory Rate Blood Pressure 149/76 H 143/74 H Pulse Oximetry 94 L Intake & Output 03/07/18 03/07/18 03/08/18 06:59 18:59 06:59 Intake Total 2049 / 2049 515 / 515 4555 / 4555 Output Total 500 / 500 450 / 450 800 / 800 Balance 1550 / 1550 65 / 65 3755 / 3755 Weight 83.7 kg Intake: IV 1555 / 1555 455 / 455 555 / 555 Diprivan 1000 mg/100 ml Inj 1, 200 / 200 100 / 100 100 / 100 000 mg In 100 ml @ 5 MCG/KG/MIN 1.989 mls/hr IV.CONT TITRATE PRN Rx#:[id number] NS Inj 1,000 ML @ 50 mls/hr IV. 1000 / 1000 CONT .Q20H [facility] Rx#:[id number] Vancomycin Inj 1,000 MG In NS 250 / 250 Inj 250 ML @ 250 mls/hr IV.SIG Q8H [facility] Rx#:[id number] Ancef 2 GM Premix Inj 2 gm In 100 / 100 50 ml @ 100 mls/hr IV.SIG Q8H [facility] Rx#:[id number] fentaNYL 10 mcg/mL Premix Drip 250 / 250 250 / 250 2,500 mcg In 250 ml @ 50 MCG/HR 5 mls/hr IV.SIG TITRATE PRN Rx #:[id number] Keppra Inj 500 MG In NS Inj 100 105 / 105 105 / 105 105 / 105 ML @ 400 mls/hr IV.SIG Q12H [facility] Rx#:[id number] Tube Feeding 495 / 495 Water Bolus Amount 60 / 60 Anesthesia Amount 4000 / 4000 Intake (Blood Product) Amt 0 / 0 Rbc As-3 Leukoreduced Unit 0 / 0 [id number] Output: Estimated Blood Loss 700 / 700 Urine Amount (Catheter) 500 / 500 400 / 400 100 / 100 Indwelling Urethral Catheter 500 / 500 400 / 400 100 / 100 Gastric Drainage 0 / 0 Right Nare Nasogastric Tube 0 / 0 Wound Drainage 50 / 50 Left Hip 50 / 50 Other: Date of Last Bowel Movement 03/07/18 03/07/18 03/08/18 # Bowel Movements 2 0 Narrative: LLE: dressings clean and dry. intact. +CKS. moving foot freely. +drain - Urinary Catheter Management Indwelling Urethral Catheter Cath placed during this visit: yes Reason for continuing: Hourly intake/output Insertion date: 03/04/18 Insertion time: 10:00 Results - Labs CBC & Chem 7: 03/08/18 05:10 03/08/18 05:10 Laboratory Results - last 24 hr 03/07/18 03/07/18 03/07/18 04:40 04:47 09:02 WBC RBC Hgb Hct MCV MCH MCHC RDW Plt Count MPV Neut % (Auto) Lymph % (Auto) [place] % (Auto) Eos % (Auto) Baso % (Auto) Neut # (Auto) Lymph # (Auto) [place] # (Auto) Eos # (Auto) Baso # (Auto) WBC Differential Manual diff final Seg Neuts % (Manual) 76 H Band Neuts % (Manual) 10 H Lymphocytes % (Manual) 8 L Monocytes % (Manual) 6 Abs Neuts (Manual) 8.0 H Differential Comment Dohle Bodies Present H Platelet Estimate Low L Platelet Morphology Normal Ovalocytes 1+ H PT INR APTT Puncture Site Patient Temperature O2 Saturation ABG pH ABG pCO2 ABG pO2 ABG HCO3 ABG O2 Content ABG Base Excess ABG Methemoglobin [place] Test Hemoglobin Carboxyhemoglobin O2 Delivery Device Vent Setting Inspired O2 Critical Value Sodium Potassium Chloride Carbon Dioxide Anion Gap BUN Creatinine Estimated GFR Random Glucose Calcium Prot Corrected Calcium Total Protein Blood Type O Positive Blood Type Recheck Not needed Antibody Screen Negative MTS Gel Crossmatch See Detail See Detail Bld Prod Order Comment Not Reportable Cancelled 03/07/18 03/07/18 03/08/18 14:06 17:31 05:10 WBC 8.3 RBC 3.18 L Hgb 10.1 L 9.2 L Hct 27.6 L 26.0 L MCV 81.7 MCH 28.9 MCHC 35.4 RDW 16.8 Plt Count 112 L MPV 8.0 Neut % (Auto) 75.2 H Lymph % (Auto) 13.8 [place] % (Auto) 10.6 H Eos % (Auto) 0.2 Baso % (Auto) 0.2 Neut # (Auto) 6.3 Lymph # (Auto) 1.1 [place] # (Auto) 0.9 Eos # (Auto) 0.0 Baso # (Auto) 0.0 WBC Differential . Seg Neuts % (Manual) Band Neuts % (Manual) Lymphocytes % (Manual) Monocytes % (Manual) Abs Neuts (Manual) Differential Comment Auto diff final Dohle Bodies Platelet Estimate Platelet Morphology Ovalocytes PT 9.9 INR 1.0 APTT 26.3 Puncture Site Patient Temperature O2 Saturation ABG pH ABG pCO2 ABG pO2 ABG HCO3 ABG O2 Content ABG Base Excess ABG Methemoglobin Nico Test Hemoglobin Carboxyhemoglobin O2 Delivery Device Vent Setting Inspired O2 Critical Value Sodium Potassium Chloride Carbon Dioxide Anion Gap BUN Creatinine Estimated GFR Random Glucose Calcium Prot Corrected Calcium Total Protein Blood Type Blood Type Recheck Antibody Screen MTS Gel Crossmatch Bld Prod Order Comment 03/08/18 03/08/18 05:10 06:00 WBC RBC Hgb Hct MCV MCH MCHC RDW Plt Count MPV Neut % (Auto) Lymph % (Auto) [place] % (Auto) Eos % (Auto) Baso % (Auto) Neut # (Auto) Lymph # (Auto) [place] # (Auto) Eos # (Auto) Baso # (Auto) WBC Differential Seg Neuts % (Manual) Band Neuts % (Manual) Lymphocytes % (Manual) Monocytes % (Manual) Abs Neuts (Manual) Differential Comment Dohle Bodies Platelet Estimate Platelet Morphology Ovalocytes PT INR APTT Puncture Site Left radial Patient Temperature 98.6 O2 Saturation 94 ABG pH 7.44 H ABG pCO2 37 L ABG pO2 78 ABG HCO3 25 ABG O2 Content 12.3 ABG Base Excess 1.0 ABG Methemoglobin 1.4 Nico Test Present Hemoglobin 9.2 L Carboxyhemoglobin 1.4 O2 Delivery Device Ventilator Vent Setting Inspired O2 35 Critical Value No Sodium 146 H Potassium 3.6 Chloride 113 H Carbon Dioxide 26.2 Anion Gap 7 BUN 13 Creatinine 0.69 Estimated GFR Greater than 89 Random Glucose 150 H Calcium 6.8 L* Prot Corrected Calcium 7.8 L Total Protein 5.1 L Blood Type Blood Type Recheck Antibody Screen MTS Gel Crossmatch Bld Prod Order Comment - Imaging Impressions Chest X-Ray 03/08/18 00:00 CONCLUSION: Slight decrease in right mid to lower lung zone opacity. Assessment and Plan - Assessment and Plan 1) Left Acetabulum fx s/p ORIF - POD 1 -TTWB -knee brace at all times -posterior hip precautions -daily dressing changes POD 2 -D/C drain POD 2 -go for radiation therapy today to left hip -will follow -ortho surgeries complete
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
[2018-03-08] MEDS: Docusate Sodium 100 MG Capsule PO SCH (08:30)
[2018-03-08] MEDS: Senna/Docusate Sodium 8.6/50 MG Tablet PO SCH ×3 (08:30→20:08)
--- NOTE | 2018-03-08 08:30 | XR ---
EXAM DATE: 03/07/2018 8:16 AM EST AGE/SEX: 22 years / Male INDICATIONS: Open reduction internal fixation left acetabulum. CLINICAL DATA: This is the patient's initial encounter. Patient reports that signs and symptoms have been present for 1 day and indicates a pain score of Nonresponsive. MEDICAL/SURGICAL HISTORY: Non-responsive. Non-responsive. [place] [facility] [place]. . FINDINGS: Multiple magnified C-arm spot views are centered over the hip joint and are labeled left. These show placement of orthopedic screws through the greater trochanter as well as through the ilium/ischium. O rthopedic plates are also seen surrounding the acetabulum. Good alignment is noted. Air is seen withi n the soft tissues overlying the greater trochanter. CONCLUSION: Orthopedic hardware with good alignment. Electronically signed by: Cesar Chavez MD 03/08/2018 8:29 AM EST
[2018-03-08] MEDS: Chlorhexidine 0.12% Oral Kit 15 ML UDC OROPHARYNG SCH (08:34)
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
[2018-03-08] MEDS: Pantoprazole Inj 40 MG Vial IV.PUSH SCH (11:45)
[2018-03-08] MEDS: Indomethacin 75 MG ER Capsule PO SCH ×2 (12:00→18:29)
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
[2018-03-08] MEDS: Enoxaparin Inj 30 MG/0.3 ML Syringe SQ SCH (17:39)
[2018-03-08] MEDS: levETIRAcetam 1000mg/100mL Inj 100 ML IV.SIG SCH (18:33)
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
[2018-03-08] MEDS: Sod Chloride 0.9% Inj 1,000 ML IV.CONT SCH ×3 (20:07→23:20)
[2018-03-09] MEDS: Vancomycin Inj 1,000 MG in Sodium Chlor 0.9% Inj 250 ML IV.SIG SCH ×2 (00:26→09:08)
[2018-03-09] MEDS ORDERED: Pharmacy Ordered Lab Info OTHER ONE (00:45)
[2018-03-09] MEDS: Chlorhexidine Gluconate 2% 1 Pack (2 Cloths) TOPICAL SCH (04:25)
[2018-03-09] MEDS: Enoxaparin Inj 30 MG/0.3 ML Syringe SQ SCH ×2 (04:25→17:30)
[2018-03-09 04:58] LABS: Baso % (Auto) 0.2 % (0.0-2.0); Eos # (Auto) 0.1 th/mm3 (0.0-0.4); Eos % (Auto) 0.7 % (0.0-4.0); Hematocrit 26.4 % (39.0-51.0); Hemoglobin 9.3 gm/dL (13.0-17.0); Lymph % (Auto) 11.3 % (9.0-44.0); Mean Corpuscular HGB Conc 35.2 % (32.0-36.0); Mean Corpuscular Hemoglobin 29.1 pg (27.0-34.0); Mean Corpuscular Volume 82.7 fL (80.0-100.0); Mean Platelet Volume 7.8 fL (7.0-11.0); Mono # (Auto) 0.8 th/mm3 (0.0-0.9); Mono % (Auto) 9.1 % (0.0-8.0); Neut # (Auto) 6.9 th/mm3 (1.8-7.7); Neut % (Auto) 78.7 % (16.0-70.0); Platelet Count 122 th/mm3 (150-450); Red Blood Count 3.19 mil/mm3 (4.50-5.90); Red Cell Distribution Width 16.4 % (11.6-17.2); White Blood Count 8.7 th/mm3 (4.0-11.0)
[2018-03-09 05:29] LABS: Anion Gap 7 meq/L (5-15); Blood Urea Nitrogen 14 mg/dL (7-18); Calcium 7.3 mg/dL (8.5-10.1); Carbon Dioxide 25.6 meq/L (21.0-32.0); Chloride 111 meq/L (98-107); Glomerular Filtration Rate Greater Than 89 mL/min (>89); Glucose,Random 103 mg/dL (74-106); Potassium 3.7 meq/L (3.5-5.1); Sodium 144 meq/L (136-145)
[2018-03-09 05:48] LABS: Calcium-Albumin Corrected 8.1 mg/dL (8.5-10.1); Total Protein 5.6 g/dL (6.4-8.2)
[2018-03-09] MEDS: Oral Hygiene Kit OROPHARYNG SCH ×4 (06:48→23:38)
[2018-03-09] MEDS: ceFAZolin 2 GM Premix Inj 2 GM/50 ML PIGGYBACK IV.SIG SCH ×2 (06:51→13:30)
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
--- NOTE | 2018-03-09 08:41 | P.PNOP ---
Subjective Interval history: No complaints. Not very communicative Physical Exam Vital signs: Vital Signs 03/08/18 09:00 03/08/18 10:00 03/08/18 11:00 Temperature 100.8 F H 100.9 F H Pulse Rate 100 H 116 H 108 H Respiratory Rate 20 25 H 26 H Blood Pressure 143/86 H 153/80 H 153/76 H Pulse Oximetry 100 96 97 03/08/18 12:00 03/08/18 13:00 03/08/18 14:00 Temperature 101.1 F H 101.1 F H 101.7 F H Pulse Rate 114 H 99 H 99 H Respiratory Rate 26 H 25 H 25 H Blood Pressure 164/75 H 152/76 H 154/84 H Pulse Oximetry 99 98 97 03/08/18 15:00 03/08/18 16:00 03/08/18 17:00 Temperature 100.9 F H 100.6 F H 100.8 F H Pulse Rate 93 H 96 H 105 H Respiratory Rate 25 H 24 35 H Blood Pressure 137/69 149/86 H 152/77 H Pulse Oximetry 97 96 96 03/08/18 18:00 03/08/18 19:00 03/08/18 19:45 Temperature 100.4 F H Pulse Rate 73 79 Respiratory Rate 23 26 H Blood Pressure 138/73 143/76 H Pulse Oximetry 97 98 97 03/08/18 20:00 03/08/18 21:00 03/08/18 22:00 Temperature 99.4 F Pulse Rate 73 71 73 Respiratory Rate 21 21 23 Blood Pressure 139/74 135/67 127/69 Pulse Oximetry 96 97 97 03/08/18 23:00 03/09/18 00:00 03/09/18 01:00 Temperature 98.6 F Pulse Rate 70 68 101 H Respiratory Rate 19 24 17 Blood Pressure 127/68 120/58 L 134/79 Pulse Oximetry 97 97 03/09/18 02:00 03/09/18 03:00 03/09/18 04:00 Temperature 98.2 F Pulse Rate 65 67 86 Respiratory Rate 17 18 Blood Pressure 133/67 132/75 142/83 H Pulse Oximetry 98 99 99 03/09/18 04:26 03/09/18 05:00 03/09/18 06:00 Temperature Pulse Rate 90 80 Respiratory Rate Blood Pressure 143/86 H 138/57 L Pulse Oximetry 100 99 100 03/09/18 08:19 Temperature Pulse Rate Respiratory Rate Blood Pressure Pulse Oximetry 100 Intake & Output 03/08/18 03/09/18 03/09/18 18:59 06:59 18:59 Intake Total 842 / 842 360 / 360 Output Total 975 / 975 520 / 520 Balance -133 / -133 -160 / -160 Weight 81.8 kg Intake: IV 650 / 650 300 / 300 Vancomycin Inj 1,000 MG In NS 500 / 500 250 / 250 Inj 250 ML @ 250 mls/hr IV.SIG Q8H [facility] Rx#:[id number] Ancef 2 GM Premix Inj 2 gm In 50 / 50 50 / 50 50 ml @ 100 mls/hr IV.SIG Q8H [facility] Rx#:[id number] Keppra 1000 mg/100 mL Premix 100 / 100 100 ML @ 400 mls/hr IV.SIG Q12HR [facility] Rx#:[id number] Oral 60 / 60 Tube Feeding 112 / 112 Water Bolus Amount 80 / 80 Output: Urine 500 / 500 Urine Amount (Catheter) 950 / 950 Indwelling Urethral Catheter 950 / 950 Gastric Drainage 0 / 0 Right Nare Nasogastric Tube 0 / 0 Wound Drainage 25 / 25 20 / 20 Left Hip 25 / 25 20 / 20 Other: Date of Last Bowel Movement 03/08/18 03/09/18 # Bowel Movements 0 1 Narrative: Dressing dry. Drain intact. Moves both feet equally. - Urinary Catheter Management Indwelling Urethral Catheter Cath placed during this visit: yes Reason for continuing: Hourly intake/output Insertion date: 03/04/18 Insertion time: 10:00 Results - Labs CBC & Chem 7: 03/09/18 04:20 03/09/18 04:20 Laboratory Results - last 24 hr 03/07/18 03/09/18 03/09/18 04:47 00:25 04:20 WBC 8.7 RBC 3.19 L Hgb 9.3 L Hct 26.4 L MCV 82.7 MCH 29.1 MCHC 35.2 RDW 16.4 Plt Count 122 L MPV 7.8 Neut % (Auto) 78.7 H Lymph % (Auto) 11.3 [place] % (Auto) 9.1 H Eos % (Auto) 0.7 Baso % (Auto) 0.2 Neut # (Auto) 6.9 Lymph # (Auto) 1.0 [place] # (Auto) 0.8 Eos # (Auto) 0.1 Baso # (Auto) 0.0 WBC Differential . Differential Comment Auto diff final Sodium Potassium Chloride Carbon Dioxide Anion Gap BUN Creatinine Estimated GFR Random Glucose Calcium Prot Corrected Calcium Total Protein Vancomycin Trough 8.2 Blood Type O Positive Blood Type Recheck Not needed Antibody Screen Negative MTS Gel Crossmatch See Detail 03/09/18 04:20 WBC RBC Hgb Hct MCV MCH MCHC RDW Plt Count MPV Neut % (Auto) Lymph % (Auto) [facility] % (Auto) Eos % (Auto) Baso % (Auto) Neut # (Auto) Lymph # (Auto) [place] # (Auto) Eos # (Auto) Baso # (Auto) WBC Differential Differential Comment Sodium 144 Potassium 3.7 Chloride 111 H Carbon Dioxide 25.6 Anion Gap 7 BUN 14 Creatinine 0.61 Estimated GFR Greater than 89 Random Glucose 103 Calcium 7.3 L* Prot Corrected Calcium 8.1 L Total Protein 5.6 L Vancomycin Trough Blood Type Blood Type Recheck Antibody Screen MTS Gel Crossmatch Assessment and Plan - Assessment and Plan Left Acetabulum fx Surgery: S/p ORIF left acetabulum:- POD 2 PLAN: -TTWB -knee brace at all times -posterior hip precautions -daily dressing changes today -D/C drain today -radiation therapy left hip, yesterday -will follow -ortho surgeries complete
--- NOTE | 2018-03-09 08:48 | P.PNNEU ---
Subjective Subjective Comments: No recurrent SZ. On kera Active Medications: Active Medications Acetaminophen (Tylenol) 650 mg PO Q6H PRN PRN Reason: Pain 1-10 And/Or Fever >101.5f Last Admin: 03/07/18 18:30 Dose: 650 mg Hydrocodone Bitart/Acetaminophen ([place] 10/325) 1 tab PO Q3H PRN PRN Reason: Pain Scale 3-10 Last Admin: 03/09/18 04:25 Dose: 1 tab Al Hydroxide/Mg Hydroxide (Milk Of Ana Franks) 30 ml PO BID [facility] Last Admin: 03/08/18 20:08 Dose: 30 ml Albuterol (Duoneb Neb (Prn)) 1 ampul NEB Q2HR NEB PRN PRN Reason: SHORTNESS OF BREATH Bacitracin (Baciguent Oint) 1 applicatio TOPICAL BID [facility] Last Admin: 03/08/18 20:07 Dose: 1 applicatio Chlorhexidine Gluconate (Chlorhexidine 2% Cloth) 3 pack TOPICAL DAILY@0400 [facility] Stop: 03/10/18 03:59 Last Admin: 03/09/18 04:25 Dose: 3 pack Chlorhexidine Gluconate (Chlorhexidine 2% Cloth) 3 pack TOPICAL DAILY@0400 PRN PRN Reason: Extra cloth needed Stop: 03/10/18 03:59 Cyclobenzaprine HCl (Flexeril) 5 mg PO Q8HR [facility] Last Admin: 03/09/18 06:51 Dose: 5 mg Diphenhydramine HCl (Benadryl) 25 mg PO Q6H PRN PRN Reason: ITCHING Enalaprilat (Vasotec Inj) 1.25 mg IV.PUSH Q8H PRN PRN Reason: Blood pressure 180/95 Enoxaparin Sodium (Lovenox Inj) 30 mg SQ Q12H [facility] Last Admin: 03/09/18 04:25 Dose: 30 mg Magnesium Sulfate 4 gm/ Sodium (Chloride) 100 mls @ 50 mls/hr IV.SIG UNSCH PRN PRN Reason: For Magnesium 0.9 - 1.1 mg/dL Sodium Chloride (Ns Inj) 1,000 mls @ 50 mls/hr IV.CONT .Q20H [facility] Last Admin: 03/08/18 23:20 Dose: 50 mls/hr Potassium Chloride (Kcl 40 Meq Premix Inj) 40 meq in 100 mls @ 25 mls/hr IV.SIG Q2H PRN PRN Reason: For Potassium 2.8 - 3.2 mEq/L Potassium Chloride (Kcl 20 Meq Premix Inj) 20 meq in 100 mls @ 50 mls/hr IV.SIG Q2H PRN PRN Reason: For Potassium 3.3 - 3.5 mEq/L Potassium Chloride (Kcl 40 Meq Premix Inj) 40 meq in 100 mls @ 25 mls/hr IV.SIG UNSCH PRN PRN Reason: For Potassium 3.3 - 3.5 mEq/L Last Infusion: 03/07/18 10:08 Dose: Infused Potassium Chloride (Kcl 20 Meq Premix Inj) 20 meq in 100 mls @ 50 mls/hr IV.SIG Q2H PRN PRN Reason: For Potassium 2.8 - 3.2 mEq/L Potassium Phosphate 30 mmol/ (Sodium Chloride) 260 mls @ 42 mls/hr IV.SIG UNSCH PRN PRN Reason: SEE LABEL COMMENTS Magnesium Sulfate 2 gm/ Sodium (Chloride) 100 mls @ 50 mls/hr IV.SIG UNSCH PRN PRN Reason: For Magnesium 1.2 - 1.6 mg/dL Sodium Phosphate 30 mmol/ (Sodium Chloride) 260 mls @ 42 mls/hr IV.SIG UNSCH PRN PRN Reason: For Phosphorus < 2.5 mg/dL Cefazolin Sodium/Dextrose (Ancef 2 Gm Premix Inj) 2 gm in 50 mls @ 100 mls/hr IV.SIG Q8H [facility] Stop: 03/09/18 13:29 Last Admin: 03/09/18 06:51 Dose: 100 mls/hr Pharmacy Profile Note (Vancomycin Consult Pharmacy) 0 mls @ 0 mls/hr OTHER UNSCH [facility] Stop: 03/09/18 15:44 Vancomycin HCl 1,000 mg/ (Sodium Chloride) 250 mls @ 250 mls/hr IV.SIG Q8H [facility] Last Infusion: 03/09/18 01:26 Dose: Infused Levetiracetam (Keppra 1000 Mg/100 Ml Premix) 100 mls @ 400 mls/hr IV.SIG Q12HR [facility] Last Infusion: 03/08/18 18:48 Dose: Infused Indomethacin (Indocin Er) 75 mg PO DAILY [facility] Stop: 03/14/18 09:01 Last Admin: 03/08/18 18:29 Dose: 75 mg Lactulose (Lactulose Liq) 30 ml PO DAILY [facility] Last Admin: 03/08/18 11:44 Dose: Not Given Lidocaine HCl (Lidoderm 5% Patch.12 Hr) 1 patch T-DERMAL DAILY [facility] Magnesium Oxide (Mag-Ox) 800 mg PO UNSCH PRN PRN Reason: For Magnesium 1.2 - 1.6 mg/dL Miscellaneous (Pill Splitter) 1 each OTHER UNSCH [facility] Miscellaneous Medication () 1 each OROPHARYNG 0000,0400,1200,1600 [facility] Last Admin: 03/09/18 06:48 Dose: Not Given Morphine Sulfate (Morphine Inj) 4 mg IV.PUSH Q3HR PRN PRN Reason: BREAKTHROUGH PAIN Ondansetron HCl (Zofran Inj) 4 mg IV.PUSH Q6H PRN PRN Reason: NAUSEA OR VOMITING Ondansetron HCl (Zofran Odt) 4 mg PO Q6H PRN PRN Reason: NAUSEA OR VOMITING Pantoprazole Sodium (Protonix Inj) 40 mg IV.PUSH Q24H [facility] Last Admin: 03/08/18 11:45 Dose: 40 mg Patch Removal (Remove Old Patch) 1 each T-DERMAL HS [facility] Last Admin: 03/08/18 21:44 Dose: 1 each Potassium Bicarb/Potassium Chloride (K-Lyte Cl Eff) 50 meq PO UNSCH PRN PRN Reason: For Potassium 3.3 - 3.5 mEq/L Potassium Phosphate (K-Phos Original) 2,000 mg PO UNSCH PRN PRN Reason: SEE LABEL COMMENTS Potassium Phosphate (K-Phos Original) 2,000 mg PO Q4H PRN PRN Reason: Phosphorus Less Than 2.5 mg/dL Senna/Docusate Sodium (Alvina-Colace) 1 tab PO BID [facility] Last Admin: 03/08/18 20:08 Dose: 1 tab Sennosides (Senokot) 17.2 mg PO BID PRN PRN Reason: Moderate Constipation Sodium Chloride (Ns Flush) 2 ml IV.FLUSH BID [facility] Last Admin: 03/08/18 20:08 Dose: 2 ml Sodium Chloride (Ns Flush) 2 ml IV.FLUSH PRN PRN PRN Reason: FLUSH AFTER USING IV ACCESS Allergies/Adverse Reactions: Allergies Allergy/AdvReac Type Severity Reaction Status Date / Time No Allergy Information Allergy Verified 03/04/18 13:29 Available Physical Exam Vital signs: Vital Signs 03/08/18 09:00 03/08/18 10:00 03/08/18 11:00 Temperature 100.8 F H 100.9 F H Pulse Rate 100 H 116 H 108 H Respiratory Rate 20 25 H 26 H Blood Pressure 143/86 H 153/80 H 153/76 H Pulse Oximetry 100 96 97 03/08/18 12:00 03/08/18 13:00 03/08/18 14:00 Temperature 101.1 F H 101.1 F H 101.7 F H Pulse Rate 114 H 99 H 99 H Respiratory Rate 26 H 25 H 25 H Blood Pressure 164/75 H 152/76 H 154/84 H Pulse Oximetry 99 98 97 03/08/18 15:00 03/08/18 16:00 03/08/18 17:00 Temperature 100.9 F H 100.6 F H 100.8 F H Pulse Rate 93 H 96 H 105 H Respiratory Rate 25 H 24 35 H Blood Pressure 137/69 149/86 H 152/77 H Pulse Oximetry 97 96 96 03/08/18 18:00 03/08/18 19:00 03/08/18 19:45 Temperature 100.4 F H Pulse Rate 73 79 Respiratory Rate 23 26 H Blood Pressure 138/73 143/76 H Pulse Oximetry 97 98 97 03/08/18 20:00 03/08/18 21:00 03/08/18 22:00 Temperature 99.4 F Pulse Rate 73 71 73 Respiratory Rate 21 21 23 Blood Pressure 139/74 135/67 127/69 Pulse Oximetry 96 97 97 03/08/18 23:00 03/09/18 00:00 03/09/18 01:00 Temperature 98.6 F Pulse Rate 70 68 101 H Respiratory Rate 19 24 17 Blood Pressure 127/68 120/58 L 134/79 Pulse Oximetry 97 97 03/09/18 02:00 03/09/18 03:00 03/09/18 04:00 Temperature 98.2 F Pulse Rate 65 67 86 Respiratory Rate 17 18 Blood Pressure 133/67 132/75 142/83 H Pulse Oximetry 98 99 99 03/09/18 04:26 03/09/18 05:00 03/09/18 06:00 Temperature Pulse Rate 90 80 Respiratory Rate Blood Pressure 143/86 H 138/57 L Pulse Oximetry 100 99 100 03/09/18 08:19 Temperature Pulse Rate Respiratory Rate Blood Pressure Pulse Oximetry 100 Intake & Output 03/08/18 03/09/18 03/09/18 18:59 06:59 18:59 Intake Total 842 / 842 360 / 360 Output Total 975 / 975 520 / 520 Balance -133 / -133 -160 / -160 Weight 81.8 kg Intake: IV 650 / 650 300 / 300 Vancomycin Inj 1,000 MG In NS 500 / 500 250 / 250 Inj 250 ML @ 250 mls/hr IV.SIG Q8H [facility] Rx#:[id number] Ancef 2 GM Premix Inj 2 gm In 50 / 50 50 / 50 50 ml @ 100 mls/hr IV.SIG Q8H [facility] Rx#:[id number] Keppra 1000 mg/100 mL Premix 100 / 100 100 ML @ 400 mls/hr IV.SIG Q12HR [facility] Rx#:[id number] Oral 60 / 60 Tube Feeding 112 / 112 Water Bolus Amount 80 / 80 Output: Urine 500 / 500 Urine Amount (Catheter) 950 / 950 Indwelling Urethral Catheter 950 / 950 Gastric Drainage 0 / 0 Right Nare Nasogastric Tube 0 / 0 Wound Drainage 25 / 25 20 / 20 Left Hip 25 / 25 20 / 20 Other: Date of Last Bowel Movement 03/08/18 03/09/18 # Bowel Movements 0 1 - Routine Neurological Exam follow simple commands but not complex secondary to language difference CN--PERRL, EOMI MOTOR no tonic clonic activity or myoclonus. marketing performance analyst equal - Urinary Catheter Management Indwelling Urethral Catheter Cath placed during this visit: yes Reason for continuing: Hourly intake/output Insertion date: 03/04/18 Insertion time: 10:00 Objective Laboratory Results - last 24 hr 03/07/18 03/09/18 03/09/18 04:47 00:25 04:20 WBC 8.7 RBC 3.19 L Hgb 9.3 L Hct 26.4 L MCV 82.7 MCH 29.1 MCHC 35.2 RDW 16.4 Plt Count 122 L MPV 7.8 Neut % (Auto) 78.7 H Lymph % (Auto) 11.3 [place] % (Auto) 9.1 H Eos % (Auto) 0.7 Baso % (Auto) 0.2 Neut # (Auto) 6.9 Lymph # (Auto) 1.0 [place] # (Auto) 0.8 Eos # (Auto) 0.1 Baso # (Auto) 0.0 WBC Differential . Differential Comment Auto diff final Sodium Potassium Chloride Carbon Dioxide Anion Gap BUN Creatinine Estimated GFR Random Glucose Calcium Prot Corrected Calcium Total Protein Vancomycin Trough 8.2 Blood Type O Positive Blood Type Recheck Not needed Antibody Screen Negative MTS Gel Crossmatch See Detail 03/09/18 04:20 WBC RBC Hgb Hct MCV MCH MCHC RDW Plt Count MPV Neut % (Auto) Lymph % (Auto) [place] % (Auto) Eos % (Auto) Baso % (Auto) Neut # (Auto) Lymph # (Auto) [place] # (Auto) Eos # (Auto) Baso # (Auto) WBC Differential Differential Comment Sodium 144 Potassium 3.7 Chloride 111 H Carbon Dioxide 25.6 Anion Gap 7 BUN 14 Creatinine 0.61 Estimated GFR Greater than 89 Random Glucose 103 Calcium 7.3 L* Prot Corrected Calcium 8.1 L Total Protein 5.6 L Vancomycin Trough Blood Type Blood Type Recheck Antibody Screen MTS Gel Crossmatch Diagnostic Tests: EEG--no epileptiform features Review/Management - Diagnosis (1) Seizure Code(s): R56.9 - Unspecified convulsions Status: Acute Current Visit: Yes - Review/Management Plan: continue current dose keppra
[2018-03-09] MEDS: Lidocaine 5% Patch T-DERMAL SCH (09:06)
[2018-03-09] MEDS: levETIRAcetam 1000mg/100mL Inj 100 ML IV.SIG SCH ×2 (09:07→20:33)
[2018-03-09] MEDS: Senna/Docusate Sodium 8.6/50 MG Tablet PO SCH ×2 (09:08→20:32)
[2018-03-09] MEDS: Indomethacin 75 MG ER Capsule PO SCH (09:09)
--- NOTE | 2018-03-09 09:46 | P.PNNS ---
Subjective Interval history: Pt extubated. opens eyes to voice. Follows commands. Complains of headache. <Nirmal Gonzales - Last Filed: 03/09/18 09:40> Physical Exam Vital signs: Vital Signs 03/08/18 10:00 03/08/18 11:00 03/08/18 12:00 Temperature 100.8 F H 100.9 F H 101.1 F H Pulse Rate 116 H 108 H 114 H Respiratory Rate 25 H 26 H 26 H Blood Pressure 153/80 H 153/76 H 164/75 H Pulse Oximetry 96 97 99 03/08/18 13:00 03/08/18 14:00 03/08/18 15:00 Temperature 101.1 F H 101.7 F H 100.9 F H Pulse Rate 99 H 99 H 93 H Respiratory Rate 25 H 25 H 25 H Blood Pressure 152/76 H 154/84 H 137/69 Pulse Oximetry 98 97 97 03/08/18 16:00 03/08/18 17:00 03/08/18 18:00 Temperature 100.6 F H 100.8 F H 100.4 F H Pulse Rate 96 H 105 H 73 Respiratory Rate 24 35 H 23 Blood Pressure 149/86 H 152/77 H 138/73 Pulse Oximetry 96 96 97 03/08/18 19:00 03/08/18 19:45 03/08/18 20:00 Temperature 99.4 F Pulse Rate 79 73 Respiratory Rate 26 H 21 Blood Pressure 143/76 H 139/74 Pulse Oximetry 98 97 96 03/08/18 21:00 03/08/18 22:00 03/08/18 23:00 Temperature Pulse Rate 71 73 70 Respiratory Rate 21 23 19 Blood Pressure 135/67 127/69 127/68 Pulse Oximetry 97 97 97 03/09/18 00:00 03/09/18 01:00 03/09/18 02:00 Temperature 98.6 F Pulse Rate 68 101 H 65 Respiratory Rate 24 17 17 Blood Pressure 120/58 L 134/79 133/67 Pulse Oximetry 97 98 03/09/18 03:00 03/09/18 04:00 03/09/18 04:26 Temperature 98.2 F Pulse Rate 67 86 Respiratory Rate 18 Blood Pressure 132/75 142/83 H Pulse Oximetry 99 99 100 03/09/18 05:00 03/09/18 06:00 03/09/18 08:19 Temperature Pulse Rate 90 80 Respiratory Rate Blood Pressure 143/86 H 138/57 L Pulse Oximetry 99 100 100 03/09/18 09:09 Temperature Pulse Rate Respiratory Rate 6 L Blood Pressure Pulse Oximetry Intake & Output 03/08/18 03/09/18 03/09/18 18:59 06:59 18:59 Intake Total 842 / 842 360 / 360 50 / 50 Output Total 975 / 975 520 / 520 Balance -133 / -133 -160 / -160 50 / 50 Weight 81.8 kg Intake: IV 650 / 650 300 / 300 50 / 50 Vancomycin Inj 1,000 MG In NS 500 / 500 250 / 250 Inj 250 ML @ 250 mls/hr IV.SIG Q8H [facility] Rx#:[id number] Ancef 2 GM Premix Inj 2 gm In 50 / 50 50 / 50 50 / 50 50 ml @ 100 mls/hr IV.SIG Q8H [facility] Rx#:[id number] Keppra 1000 mg/100 mL Premix 100 / 100 100 ML @ 400 mls/hr IV.SIG Q12HR [facility] Rx#:[id number] Oral 60 / 60 Tube Feeding 112 / 112 Water Bolus Amount 80 / 80 Output: Urine 500 / 500 Urine Amount (Catheter) 950 / 950 Indwelling Urethral Catheter 950 / 950 Gastric Drainage 0 / 0 Right Nare Nasogastric Tube 0 / 0 Wound Drainage 25 / 25 20 / 20 Left Hip 25 / 25 20 / 20 Other: Date of Last Bowel Movement 03/08/18 03/09/18 # Bowel Movements 0 1 - Constitutional no acute distress - Routine HEENT Exam Head: Absent: atraumatic (Laceration right forehead clean and dry.) Eye: Present: PERRL (Pupils 4mm bialterally reactive bilaterally.) ENT: Present: oropharynx clear - Routine Neck Exam Present: trachea midline - Routine Respiratory Exam Present: CTA bilaterally. Absent: respiratory distress, rhonchi, wheezes - Routine Cardiovascular Exam Present: RRR, S1, S2. Absent: murmur - Routine Abdominal Exam Present: soft, normoactive bowel sounds. Absent: distended - Routine Extremities Exam Comments: Left lower extremity in orthopedic brace. - Routine Skin Exam Absent: cyanosis, erythema Comments: Laceration right side of forehead clean and dry. - Routine Neurological Exam Present: altered mental status, moving all extremities. Absent: alert ( Becoming more alert. Opens eyes to voice.) Pt opens eyes to voice. Pupils 4mm bilaterally reactive bilaterally. Follows simple commands. - Detailed Neurological Exam: Coma Scale Eye Opening: To sound Verbal Response: Words Motor Response: Obey commands Maximus Coma Scale Total: 12 - Routine Psychiatric Exam Absent: normal affect, anxious, agitated - Urinary Catheter Management Indwelling Urethral Catheter Cath placed during this visit: yes Reason for continuing: Hourly intake/output Insertion date: 03/04/18 Insertion time: 10:00 <Nirmal Gonzales - Last Filed: 03/09/18 09:40> Vital signs: Vital Signs 03/08/18 13:00 03/08/18 14:00 03/08/18 15:00 Temperature 101.1 F H 101.7 F H 100.9 F H Pulse Rate 99 H 99 H 93 H Respiratory Rate 25 H 25 H 25 H Blood Pressure 152/76 H 154/84 H 137/69 Pulse Oximetry 98 97 97 03/08/18 16:00 03/08/18 17:00 03/08/18 18:00 Temperature 100.6 F H 100.8 F H 100.4 F H Pulse Rate 96 H 105 H 73 Respiratory Rate 24 35 H 23 Blood Pressure 149/86 H 152/77 H 138/73 Pulse Oximetry 96 96 97 03/08/18 19:00 03/08/18 19:45 03/08/18 20:00 Temperature 99.4 F Pulse Rate 79 73 Respiratory Rate 26 H 21 Blood Pressure 143/76 H 139/74 Pulse Oximetry 98 97 96 03/08/18 21:00 03/08/18 22:00 03/08/18 23:00 Temperature Pulse Rate 71 73 70 Respiratory Rate 21 23 19 Blood Pressure 135/67 127/69 127/68 Pulse Oximetry 97 97 97 03/09/18 00:00 03/09/18 01:00 03/09/18 02:00 Temperature 98.6 F Pulse Rate 68 101 H 65 Respiratory Rate 24 17 17 Blood Pressure 120/58 L 134/79 133/67 Pulse Oximetry 97 98 03/09/18 03:00 03/09/18 04:00 03/09/18 04:26 Temperature 98.2 F Pulse Rate 67 86 Respiratory Rate 18 Blood Pressure 132/75 142/83 H Pulse Oximetry 99 99 100 03/09/18 05:00 03/09/18 06:00 03/09/18 06:59 Temperature Pulse Rate 90 80 62 Respiratory Rate Blood Pressure 143/86 H 138/57 L 143/78 H Pulse Oximetry 99 100 99 03/09/18 07:00 03/09/18 07:59 03/09/18 08:00 Temperature 99.3 F Pulse Rate 64 62 65 Respiratory Rate Blood Pressure 145/79 H 145/79 H Pulse Oximetry 99 100 100 03/09/18 08:19 03/09/18 08:59 03/09/18 09:00 Temperature Pulse Rate 63 64 Respiratory Rate 67 H 74 H Blood Pressure 148/76 H Pulse Oximetry 100 100 100 03/09/18 09:09 Temperature Pulse Rate Respiratory Rate 6 L Blood Pressure Pulse Oximetry Intake & Output 03/08/18 03/09/18 03/09/18 18:59 06:59 18:59 Intake Total 842 / 842 360 / 360 50 / 50 Output Total 975 / 975 520 / 520 Balance -133 / -133 -160 / -160 50 / 50 Weight 81.8 kg Intake: IV 650 / 650 300 / 300 50 / 50 Vancomycin Inj 1,000 MG In NS 500 / 500 250 / 250 Inj 250 ML @ 250 mls/hr IV.SIG Q8H [facility] Rx#:[id number] Ancef 2 GM Premix Inj 2 gm In 50 / 50 50 / 50 50 / 50 50 ml @ 100 mls/hr IV.SIG Q8H [facility] Rx#:[id number] Keppra 1000 mg/100 mL Premix 100 / 100 100 ML @ 400 mls/hr IV.SIG Q12HR [facility] Rx#:[id number] Oral 60 / 60 Tube Feeding 112 / 112 Water Bolus Amount 80 / 80 Output: Urine 500 / 500 Urine Amount (Catheter) 950 / 950 Indwelling Urethral Catheter 950 / 950 Gastric Drainage 0 / 0 Right Nare Nasogastric Tube 0 / 0 Wound Drainage / Left Hip Other: Date of Last Bowel Movement 03/08/18 03/09/18 03/09/18 # Bowel Movements 0 1 - Urinary Catheter Management Indwelling Urethral Catheter Cath placed during this visit: no <Tu Solano - Last Filed: 03/09/18 12:07> Assessment and Plan - Assessment (1) Intracranial hemorrhage Code(s): I62.9 - Nontraumatic intracranial hemorrhage, unspecified Status: Acute (2) Ribs, multiple fractures Code(s): S22.49XA - Multiple fractures of ribs, unspecified side, initial encounter for closed fracture Status: Acute Qualifiers: Encounter type: initial encounter Fracture type: closed Laterality: right Qualified Code(s): S22.41XA - Multiple fractures of ribs, right side, initial encounter for closed fracture (3) Zygomatic arch fracture Code(s): S02.402A - Zygomatic fracture, unspecified side, initial encounter for closed fracture Status: Acute Qualifiers: Laterality: right - Plan 20-30 yo's male, trauma, left thin acute SDH, seizures, T3/4 body fractures. Neuro checks Keppra 1gm IV load then 500mg BID Ativan prn scalp lac sutured bedside repeat CT in AM with CTA neck--interval CT shows mildly worsening left frontal edema T3/4 -- these appear to be stable fractures. for now, log roll, may sit up to 30 degrees. consider TLSO brace once he mobilizes facial fractures likely nonoperative 03/[address] head blossoming of contusions, continued loss of sulcal definition left hemisphere CTA neck negative for dissection EEG negative Continue Keppra past 6 weeks given that he had a seizure, Ativan prn if he seizes again [place] dc'd due to stable ICPs and localizing on exam. Neuro checks T3/T4 vertebral body fx and T2 spinous process fx: consider TLSO brace once he starts to mobilize. P: Pt on sedation but follows commands in all 4 extremities. Wean sedation as tolerated Continue with neuro checks. T3/T4 vertebral body fx and T2 spinous process fx: TLSO brace once he starts to mobilize. <Nirmal Gonzales - Last Filed: 03/09/18 09:40> - Attending Attestation The exam, history, and the medical decision-making described in the above note were completed with the assistance of the mid-level provider. I reviewed and agree with the findings presented. I attest that I had a [id number] encounter with the patient on the same day, and personally performed and documented my assessment and findings in the medical record. <Tu Solano - Last Filed: 03/09/18 12:07>
[2018-03-09] MEDS: Pantoprazole Inj 40 MG Vial IV.PUSH SCH (10:20)
[2018-03-09] MEDS: Morphine Inj 4 MG/ML Vial IV.PUSH PRN ×3 (11:00→23:34)
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
[2018-03-09] MEDS: Vancomycin Inj 1,250 MG in Sodium Chlor 0.9% Inj 250 ML IV.SIG SCH ×2 (17:30→23:36)
[2018-03-09] MEDS: Sod Chloride 0.9% Inj 1,000 ML IV.CONT SCH (20:45)
[2018-03-10] MEDS: Vancomycin Inj 1,250 MG in Sodium Chlor 0.9% Inj 250 ML IV.SIG SCH ×3 (03:56→16:05)
[2018-03-10] MEDS: Enoxaparin Inj 30 MG/0.3 ML Syringe SQ SCH ×2 (04:00→15:53)
[2018-03-10] MEDS: Morphine Inj 4 MG/ML Vial IV.PUSH PRN (05:50)
[2018-03-10] MEDS: Oral Hygiene Kit OROPHARYNG SCH ×3 (05:53→15:54)
[2018-03-10 05:57] LABS: Baso % (Auto) 0.2 % (0.0-2.0); Eos # (Auto) 0.1 th/mm3 (0.0-0.4); Eos % (Auto) 0.6 % (0.0-4.0); Hematocrit 27.7 % (39.0-51.0); Hemoglobin 9.6 gm/dL (13.0-17.0); Lymph # (Auto) 0.9 th/mm3 (1.0-4.8); Lymph % (Auto) 11.3 % (9.0-44.0); Mean Corpuscular HGB Conc 34.7 % (32.0-36.0); Mean Corpuscular Hemoglobin 28.9 pg (27.0-34.0); Mean Corpuscular Volume 83.1 fL (80.0-100.0); Mean Platelet Volume 7.8 fL (7.0-11.0); Mono # (Auto) 0.8 th/mm3 (0.0-0.9); Mono % (Auto) 9.4 % (0.0-8.0); Neut # (Auto) 6.4 th/mm3 (1.8-7.7); Neut % (Auto) 78.5 % (16.0-70.0); Platelet Count 167 th/mm3 (150-450); Red Blood Count 3.33 mil/mm3 (4.50-5.90); Red Cell Distribution Width 15.9 % (11.6-17.2); White Blood Count 8.1 th/mm3 (4.0-11.0)
[2018-03-10 06:26] LABS: Alanine Aminotransferase 82 U/L (12-78); Albumin 2.1 g/dL (3.4-5.0); Alkaline Phosphatase 83 U/L (45-117); Anion Gap 10 meq/L (5-15); Aspartate Aminotransferase 163 U/L (15-37); Blood Urea Nitrogen 16 mg/dL (7-18); Calcium 7.4 mg/dL (8.5-10.1); Carbon Dioxide 23.2 meq/L (21.0-32.0); Chloride 107 meq/L (98-107); Glomerular Filtration Rate Greater Than 89 mL/min (>89); Glucose,Random 109 mg/dL (74-106); Potassium 3.5 meq/L (3.5-5.1); Sodium 140 meq/L (136-145); Total Protein 5.9 g/dL (6.4-8.2)
--- NOTE | 2018-03-10 07:46 | P.PNOP ---
Subjective Interval history: No complaints. Mother at bedside. Transferred from [facility]. Physical Exam Vital signs: Vital Signs 03/09/18 07:59 03/09/18 08:00 03/09/18 08:19 Temperature 99.3 F Pulse Rate 62 65 Respiratory Rate Blood Pressure 145/79 H 145/79 H Pulse Oximetry 100 100 100 03/09/18 08:59 03/09/18 09:00 03/09/18 09:09 Temperature Pulse Rate 63 64 Respiratory Rate 67 H 16 6 L Blood Pressure 148/76 H Pulse Oximetry 100 100 03/09/18 09:59 03/09/18 10:00 03/09/18 10:59 Temperature Pulse Rate 65 67 86 Respiratory Rate 22 19 18 Blood Pressure 148/82 H 156/88 H Pulse Oximetry 100 99 99 03/09/18 11:00 03/09/18 11:59 03/09/18 12:00 Temperature 99.2 F Pulse Rate 84 69 69 Respiratory Rate 19 19 19 Blood Pressure 137/67 137/67 Pulse Oximetry 100 100 100 03/09/18 12:59 03/09/18 13:00 03/09/18 13:59 Temperature Pulse Rate 71 68 65 Respiratory Rate 19 17 19 Blood Pressure 139/74 129/70 Pulse Oximetry 100 100 100 03/09/18 14:00 03/09/18 14:59 03/09/18 15:00 Temperature Pulse Rate 67 69 69 Respiratory Rate 19 19 12 Blood Pressure 132/76 Pulse Oximetry 100 100 100 03/09/18 16:00 03/09/18 20:00 03/09/18 20:32 Temperature 97.1 F L 98.5 F Pulse Rate 67 79 Respiratory Rate 18 18 20 Blood Pressure 156/74 H 159/75 H Pulse Oximetry 95 95 03/09/18 23:01 03/10/18 00:00 03/10/18 03:56 Temperature 97.4 F L Pulse Rate 73 Respiratory Rate 20 18 20 Blood Pressure 139/81 Pulse Oximetry 94 L 03/10/18 04:00 03/10/18 05:53 Temperature 98.9 F Pulse Rate 70 Respiratory Rate 18 18 Blood Pressure 164/84 H Pulse Oximetry 92 L Intake & Output 03/09/18 03/10/18 03/10/18 18:59 06:59 18:59 Intake Total 500 / 500 1745.0 / 1745.0 Output Total 810 / 810 Balance -310 / -310 1745.0 / 1745.0 Weight 72 kg Intake: IV 450 / 450 1625.0 / 1625.0 NS Inj 1,000 ML @ 50 mls/hr IV. 1000 / 1000 CONT .Q20H TREVER Rx#:[id number] Vancomycin Inj 1,000 MG In NS 250 / 250 Inj 250 ML @ 250 mls/hr IV.SIG Q8H TREVER Rx#:[id number] Vancomycin Inj 1,250 MG In NS 525.0 / 525.0 Inj 250 ML @ 250 mls/hr IV.SIG Q8H TREVER Rx#:[id number] Ancef 2 GM Premix Inj 2 gm In 100 / 100 50 ml @ 100 mls/hr IV.SIG Q8H TREVER Rx#:[id number] Keppra 1000 mg/100 mL Premix 100 / 100 100 / 100 100 ML @ 400 mls/hr IV.SIG Q12HR TREVER Rx#:[id number] Oral 50 / 50 120 / 120 Output: Urine 800 / 800 Wound Drainage Left Hip Other: # Voids 2 Date of Last Bowel Movement 03/09/18 # Bowel Movements 1 Narrative: Dressing dry. Mild swelling. Patient in knee immobilizer. Motor examination appears within normal limits - Urinary Catheter Management Indwelling Urethral Catheter Cath placed during this visit: yes Reason for continuing: Hourly intake/output Insertion date: 03/04/18 Insertion time: 10:00 Results - Labs CBC & Chem 7: 03/10/18 04:51 03/10/18 04:51 Laboratory Results - last 24 hr 03/07/18 03/10/18 03/10/18 04:47 04:51 04:51 WBC 8.1 RBC 3.33 L Hgb 9.6 L Hct 27.7 L MCV 83.1 MCH 28.9 MCHC 34.7 RDW 15.9 Plt Count 167 D MPV 7.8 Neut % (Auto) 78.5 H Lymph % (Auto) 11.3 [place] % (Auto) 9.4 H Eos % (Auto) 0.6 Baso % (Auto) 0.2 Neut # (Auto) 6.4 Lymph # (Auto) 0.9 L [place] # (Auto) 0.8 Eos # (Auto) 0.1 Baso # (Auto) 0.0 WBC Differential . Differential Comment Auto diff final Sodium 140 Potassium 3.5 Chloride 107 Carbon Dioxide 23.2 Anion Gap 10 BUN 16 Creatinine 0.65 Estimated GFR Greater than 89 Random Glucose 109 H Calcium 7.4 L* Prot Corrected Calcium 8.1 L Total Bilirubin 0.8 AST 163 H ALT 82 H Alkaline Phosphatase 83 Total Protein 5.9 L Albumin 2.1 L MTS Gel Crossmatch See Detail Assessment and Plan - Assessment and Plan Left Acetabulum fx Surgery: S/p ORIF left acetabulum:- POD 3 PLAN: -TTWB -knee brace at all times -posterior hip precautions -daily dressing changes -radiation therapy left hip, Wed -will follow -ortho surgeries complete
[2018-03-10] MEDS ORDERED: Pharmacy Ordered Lab Info OTHER ONE (08:45)
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
[2018-03-10] MEDS: Lidocaine 5% Patch T-DERMAL SCH (08:58)
[2018-03-10] MEDS: Senna/Docusate Sodium 8.6/50 MG Tablet PO SCH ×2 (08:58→21:26)
[2018-03-10] MEDS: Indomethacin 75 MG ER Capsule PO SCH (08:58)
[2018-03-10] MEDS: levETIRAcetam 1000mg/100mL Inj 100 ML IV.SIG SCH ×2 (09:15→21:21)
[2018-03-10] MEDS: Pantoprazole Inj 40 MG Vial IV.PUSH SCH (12:46)
[2018-03-10] MEDS: Sod Chloride 0.9% Inj 1,000 ML IV.CONT SCH (15:53)
[2018-03-11] MEDS: Oral Hygiene Kit OROPHARYNG SCH ×2 (00:40→06:34)
[2018-03-11] MEDS: Vancomycin Inj 1,250 MG in Sodium Chlor 0.9% Inj 250 ML IV.SIG SCH (00:41)
[2018-03-11] MEDS: Morphine Inj 4 MG/ML Vial IV.PUSH PRN (01:50)
[2018-03-11] MEDS: Enoxaparin Inj 30 MG/0.3 ML Syringe SQ SCH ×2 (06:34→15:00)
--- NOTE | 2018-03-11 09:21 | P.PNOP ---
Subjective Interval history: POd 4 s/p ORIF left acetabulum extubated. stable. no changes Physical Exam Vital signs: Vital Signs 03/10/18 12:00 03/10/18 16:00 03/10/18 20:00 Temperature 98.6 F 97.7 F 98.1 F Pulse Rate 78 65 80 Respiratory Rate 16 16 18 Blood Pressure 151/82 H 131/80 138/86 Pulse Oximetry 95 98 98 03/11/18 00:00 Temperature 98.9 F Pulse Rate 73 Respiratory Rate 20 Blood Pressure 152/89 H Pulse Oximetry 97 Intake & Output 03/10/18 03/11/18 03/11/18 18:59 06:59 18:59 Intake Total 1345.0 / 1345.0 Output Total 600 / 600 325 / 325 Balance 745.0 / 745.0 -325 / -325 Weight 72 kg Intake: IV 625.0 / 625.0 Vancomycin Inj 1,250 MG In NS 525.0 / 525.0 Inj 250 ML @ 250 mls/hr IV.SIG Q8H TREVER Rx#:[id number] Keppra 1000 mg/100 mL Premix 100 / 100 100 ML @ 400 mls/hr IV.SIG Q12HR TREVER Rx#:[id number] Oral 720 / 720 Output: Urine 600 / 600 325 / 325 Other: # Voids 3 # Incontinent Voids 1 Date of Last Bowel Movement 03/10/18 # Bowel Movements 1 Narrative: LLE: dressings clean and dry. intact. +CKS - Urinary Catheter Management Indwelling Urethral Catheter Cath placed during this visit: yes Reason for continuing: Hourly intake/output Insertion date: 03/04/18 Insertion time: 10:00 Results - Labs CBC & Chem 7: 03/10/18 04:51 03/10/18 04:51 Laboratory Results - last 24 hr 03/10/18 08:45 Vancomycin Trough 9.1 Assessment and Plan - Assessment and Plan Left Acetabulum fx Surgery: S/p ORIF left acetabulum:- POD 4 PLAN: -TTWB -knee brace at all times -posterior hip precautions -daily dressing changes -will follow -ortho surgeries complete
[2018-03-11] MEDS: levETIRAcetam 500 MG Tablet PO SCH ×2 (09:37→20:59)
[2018-03-11] MEDS: Lidocaine 5% Patch T-DERMAL SCH (09:37)
[2018-03-11] MEDS: Indomethacin 75 MG ER Capsule PO SCH (09:37)
[2018-03-11] MEDS: Senna/Docusate Sodium 8.6/50 MG Tablet PO SCH ×2 (09:41→20:59)
[2018-03-11] MEDS: Sod Chloride 0.9% Inj 1,000 ML IV.CONT SCH ×2 (09:43→12:38)
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
[2018-03-12] MEDS: Enoxaparin Inj 30 MG/0.3 ML Syringe SQ SCH (05:23)
--- NOTE | 2018-03-12 05:24 | XR ---
EXAM DATE: 03/12/2018 5:08 AM EST AGE/SEX: 22 years / Male INDICATIONS: Pulmonary contusion. CLINICAL DATA: This is the patient's subsequent encounter. Patient reports that signs and symptoms h ave been present for 1 week and indicates a pain score of 3/10. MEDICAL/SURGICAL HISTORY: . Intracranial hemorrhage. Thoracic fracture. . ORIF left acetabulum . COMPARISON: C, CHEST 1V SINGLE AP, 03/08/2018. . FINDINGS: Right-sided airspace disease slightly increased since March 08 with right pleural effusion. Left b asilar airspace disease also increased. Previous endotracheal tube and nasogastric tube and left cent ral line have been removed. CONCLUSION: Increase in right-sided airspace disease and left basilar consolidation since March 08. Bilateral effusions, right greater than left. Interval extubation. Electronically signed by: Graham Samaniego MD 03/12/2018 5:23 AM EST
--- NOTE | 2018-03-12 07:06 | P.PNOP ---
Subjective Interval history: s/p ORIF left acetabulum no changes. stable Physical Exam Vital signs: Vital Signs 03/11/18 08:00 03/11/18 12:00 03/11/18 16:00 Temperature 100.7 F H 98.1 F 98.7 F Pulse Rate 85 80 83 Respiratory Rate 17 17 17 Blood Pressure 167/78 H 141/93 H 151/80 H Pulse Oximetry 90 L 93 L 92 L 03/11/18 20:00 03/12/18 00:00 Temperature 97.7 F 98.7 F Pulse Rate 80 86 Respiratory Rate 18 16 Blood Pressure 159/88 H 139/88 Pulse Oximetry 95 96 Intake & Output 03/11/18 03/12/18 03/12/18 18:59 06:59 18:59 Intake Total 1209.5 / 1209.5 580 / 580 Output Total 450 / 450 800 / 800 Balance 759.5 / 759.5 -220 / -220 Weight 66 kg Intake: IV 1209.5 / 1209.5 NS Inj 1,000 ML @ 50 mls/hr IV. 947 / 947 CONT .Q20H [facility] Rx#:[id number] Vancomycin Inj 1,250 MG In NS 262.5 / 262.5 Inj 250 ML @ 250 mls/hr IV.SIG Q8H TREVER Rx#:[id number] Oral 580 / 580 Output: Urine 450 / 450 800 / 800 Other: Date of Last Bowel Movement 03/11/18 03/11/18 # Bowel Movements 1 Narrative: LLE: dressings clean and dry. itnact. NVI. +CKS - Urinary Catheter Management Indwelling Urethral Catheter Cath placed during this visit: yes, but has since been removed by the nurse Reason for continuing: Hourly intake/output Insertion date: 03/04/18 Insertion time: 10:00 Removal date: 03/10/18 Results - Labs CBC & Chem 7: 03/10/18 04:51 03/10/18 04:51 - Imaging Impressions Chest X-Ray 03/12/18 00:00 CONCLUSION: Increase in right-sided airspace disease and left basilar consolidation since March 08. Bilateral effusions, right greater than left. Interval extubation. Assessment and Plan - Assessment and Plan Left Acetabulum fx Surgery: S/p ORIF left acetabulum:- POD 5 PLAN: -TTWB -knee brace at all times -posterior hip precautions -daily dressing changes -will follow -ortho surgeries complete -DVT prophylaxis -CM for DC planning -f/u with Jacek or BENJA in 2 weeks -ortho cleared for Dc once arrangements made [id number] Prescription Drug Monitoring Database has been queried and verified prior to prescribing the controlled substance. Acute pain exception. This patient has normal, predicted, physiological, and time limited response to an adverse mechanical stimulus associated with surgery, trauma, or acute illness as described in my notes. There is a lack of alternative treatment options other than to include the prescribed narcotic treatment for this condition.
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
[2018-03-12] MEDS: Sod Chloride 0.9% Inj 1,000 ML IV.CONT SCH (08:37)
[2018-03-12] MEDS: Lidocaine 5% Patch T-DERMAL SCH (10:04)
[2018-03-12] MEDS: Senna/Docusate Sodium 8.6/50 MG Tablet PO SCH ×2 (10:05→21:35)
[2018-03-12] MEDS: levETIRAcetam 500 MG Tablet PO SCH ×2 (10:05→21:35)
[2018-03-12] MEDS: Indomethacin 75 MG ER Capsule PO SCH (10:05)
--- NOTE | 2018-03-12 18:53 | CT ---
EXAM DATE: 03/12/2018 6:43 PM EST AGE/SEX: 22 years / Male INDICATIONS: Altered mental status; follow up trauma. CLINICAL DATA: This is the patient's initial encounter. Patient reports that signs and symptoms have been present for 1 day and indicates a pain score of 5/10. MEDICAL/SURGICAL HISTORY: Seizures. Altered mental status None. RADIATION DOSE: 37.46 CTDI (mGy) COMPARISON: [facility] [place], CT HEAD W/O CONTRAST, 03/05/2018. [facility] [place], CT HEAD W/O CONTRAST, 03/04/2018. . TECHNIQUE: CT of the head without contrast. Using automated exposure control and adjustment of the mA and/or kV according to patient size, radiation dose was kept as low as reasonably achievable to ob tain optimal diagnostic quality images. DICOM format image data is available electronically for revi ew and comparison. FINDINGS: Low-density left frontal subdural collection is present consistent with a nonacute hematoma. It measu res approximately 5 mm in maximal thickness. Tiny blood in between the leaves of the falx persists. T he high convexity subarachnoid blood on the right has resolved. No new or worsening hemorrhage. No mi dline shift. No calvarial fractures are demonstrated. Right temporal scalp hematoma is slowly resolving. CONCLUSION: 1. Small left frontal subdural hematoma has evolved to chronic and measures approximately 5 mm in ma ximal thickness. No mass effect or midline shift. 2. Trace blood persists in between the leaves of the anterior falx. 3. Previously seen right high convexity subarachnoid blood has resolved. 4. No acute or new blood. Right temporal scalp hematoma is slowly resolving. . Electronically signed by: Hakeem Saavedra MD 03/12/2018 6:51 PM EST
[2018-03-13] MEDS: Sod Chloride 0.9% Inj 1,000 ML IV.CONT SCH (05:29)
--- NOTE | 2018-03-13 06:57 | P.PNOP ---
Subjective Interval history: POD 6 s/p ORIf left acetabulum doing well. states pain but controlled. Physical Exam Vital signs: Vital Signs 03/12/18 08:00 03/12/18 12:00 03/12/18 16:00 Temperature 98.4 F 98.9 F 98.6 F Pulse Rate 70 82 84 Respiratory Rate 17 17 17 Blood Pressure 150/84 H 139/82 129/80 Pulse Oximetry 94 L 93 L 96 03/12/18 20:00 03/13/18 00:00 Temperature 97.8 F 98.0 F Pulse Rate 72 72 Respiratory Rate 18 17 Blood Pressure 113/69 137/76 Pulse Oximetry 95 95 Intake & Output 03/12/18 03/12/18 03/13/18 06:59 18:59 06:59 Intake Total 580 / 580 479 / 479 1000 / 1000 Output Total 800 / 800 800 / 800 Balance -220 / -220 479 / 479 200 / 200 Weight 66 kg Intake: IV 479 / 479 1000 / 1000 NS Inj 1,000 ML @ 50 mls/hr IV. 479 / 479 1000 / 1000 CONT .Q20H TREVER Rx#:[id number] Oral 580 / 580 Output: Urine 800 / 800 800 / 800 Other: Date of Last Bowel Movement 03/11/18 03/11/18 # Bowel Movements 1 Narrative: LLE: dressing clean and dry. intact. +CKS. blister on anterior ankle from knee brace fitting incorrectly. full dorsiflexion and plantar flexion of ankle with full sensation to foot and toes - Urinary Catheter Management Indwelling Urethral Catheter Cath placed during this visit: yes, but has since been removed by the nurse Reason for continuing: Hourly intake/output Insertion date: 03/04/18 Insertion time: 10:00 Removal date: 03/10/18 Results - Labs CBC & Chem 7: 03/10/18 04:51 03/10/18 04:51 - Imaging Impressions Head CT 03/12/18 00:00 CONCLUSION: 1. Small left frontal subdural hematoma has evolved to chronic and measures approximately 5 mm in maximal thickness. No mass effect or midline shift. 2. Trace blood persists in between the leaves of the anterior falx. 3. Previously seen right high convexity subarachnoid blood has resolved. 4. No acute or new blood. Right temporal scalp hematoma is slowly resolving. . Assessment and Plan - Assessment and Plan Left Acetabulum fx Surgery: S/p ORIF left acetabulum:- POD 6 PLAN: -TTWB -knee brace at all times -posterior hip precautions -daily dressing changes -will follow -ortho surgeries complete -DVT prophylaxis -CM for DC planning -f/u with Jacek or BENJA at 2 weeks post op -ortho cleared for Dc once arrangements made [id number] Prescription Drug Monitoring Database has been queried and verified prior to prescribing the controlled substance. Acute pain exception. This patient has normal, predicted, physiological, and time limited response to an adverse mechanical stimulus associated with surgery, trauma, or acute illness as described in my notes. There is a lack of alternative treatment options other than to include the prescribed narcotic treatment for this condition.
[2018-03-13] MEDS: levETIRAcetam 500 MG Tablet PO SCH ×2 (08:55→22:05)
[2018-03-13] MEDS: Senna/Docusate Sodium 8.6/50 MG Tablet PO SCH ×2 (08:56→22:06)
[2018-03-13] MEDS: Indomethacin 75 MG ER Capsule PO SCH (08:56)
[2018-03-13] MEDS: Lidocaine 5% Patch T-DERMAL SCH (08:56)
[2018-03-13] MEDS: Metoclopramide 10 MG Tablet PO SCH ×5 (08:56→22:06)
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
[2018-03-13] MEDS ORDERED: Morphine Inj 4 MG/ML Vial IV.PUSH PRN (12:09)
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
[2018-03-13] MEDS ORDERED: fentaNYL Citrate Inj 100 MCG/2 ML Ampul ONE (15:07)
--- NOTE | 2018-03-13 15:37 | P.RAD ---
Post CT Procedure Prog Note - Pre Procedure Diagnosis (1) Trauma - Post Procedure Diagnosis (1) Trauma - Procedure Information Procedure Date: 03/13/18 Supervising Radiologist: BENJA Collins Assisting Physician: Cesar Chavez Jr Estimated blood loss (mL): 0 Anesthesia: Local, Conscious Sedation - Plan of Activity Patient to Unit: [facility] Patient condition: Good See PACS Report for procedural detail/treatment. Drainage Procedure CT right Chest Tube Non-Tunneled Placement Amharic Tube Size: 10 Drainage: Pleurovac Fluid Description: Bloody Findings: RIGHT CHEST TUBE PLACED, FLUID CONSISTENT WITH HEMATOMA. SAMPLE SENT FOR CULTURE. PATIENT TOLERATED THE PROCEDURE WELL.
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
--- NOTE | 2018-03-13 16:03 | XR ---
EXAM DATE: 03/13/2018 3:58 PM EST AGE/SEX: 22 years / Male INDICATIONS: Post right chest tube placement. CLINICAL DATA: This is the patient's initial encounter. Patient reports that signs and symptoms have been present for 2 days and indicates a pain score of Nonresponsive. MEDICAL/SURGICAL HISTORY: Non-responsive. Non-responsive. COMPARISON: [facility] [place], CHEST 1V SINGLE AP, 03/12/2018. . FINDINGS: Small right chest tube has been placed. Tiny residual right apical pneumothorax is noted and measures 8 mm. Diffuse airspace disease is noted on the right. The left lung is clear. The heart is stable. B ilateral pleural effusions are stable. CONCLUSION: 1. Tiny residual right apical pneumothorax measuring 8 mm status post placement of right chest tube. 2. Persistent airspace disease on the right. 3. Stable pleural effusions. Electronically signed by: Jatin Braswell MD 03/13/2018 4:01 PM EST
[2018-03-14] MEDS: Sod Chloride 0.9% Inj 1,000 ML IV.CONT SCH ×2 (04:42→20:49)
[2018-03-14] MEDS: Enoxaparin Inj 30 MG/0.3 ML Syringe SQ SCH ×2 (06:04→16:31)
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
[2018-03-14] MEDS: Senna/Docusate Sodium 8.6/50 MG Tablet PO SCH ×2 (08:26→20:42)
[2018-03-14] MEDS: Indomethacin 75 MG ER Capsule PO SCH (08:28)
[2018-03-14] MEDS: levETIRAcetam 500 MG Tablet PO SCH ×2 (08:29→20:42)
[2018-03-14] MEDS: Lidocaine 5% Patch T-DERMAL SCH (08:30)
[2018-03-14] MEDS: Metoclopramide 10 MG Tablet PO SCH ×4 (08:30→20:42)
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
--- NOTE | 2018-03-14 16:05 | XR ---
EXAM DATE: 03/14/2018 4:00 PM EST AGE/SEX: 22 years / Male INDICATIONS: Patient has right chest tube. CLINICAL DATA: This is the patient's subsequent encounter. Patient reports that signs and symptoms h ave been present for 2 days and indicates a pain score of 1/10. MEDICAL/SURGICAL HISTORY: None. None. COMPARISON: [facility] – [place], CHEST EXPIRATION ONLY, 03/13/2018. . FINDINGS: A single frontal expiratory view of the chest was performed. The right basilar pleural-parenchymal d ensity. Right-sided chest tube noted. Small right apical pneumothorax slightly more prominent measuri ng 13 mm of pleural separation. Mediastinal structures are in the midline. CONCLUSION: Small right apical pneumothorax slightly more prominent on current study. Electronically signed by: Nirmal Johnson MD 03/14/2018 4:03 PM EST
--- NOTE | 2018-03-14 16:20 | XR ---
EXAM DATE: 03/14/2018 4:04 PM EST AGE/SEX: 22 years / Male INDICATIONS: Left foot pain. CLINICAL DATA: This is the patient's initial encounter. Patient reports that signs and symptoms have been present for 1 day and indicates a pain score of 7/10. MEDICAL/SURGICAL HISTORY: None. None. COMPARISON: No prior exams available for comparison. FINDINGS: Bony structures are intact and in normal alignment. Osseous density is normal. Soft tissues are unre markable. No radiopaque foreign bodies seen. CONCLUSION: No acute bony findings Electronically signed by: Hakeem Santos MD 03/14/2018 4:19 PM EST
[2018-03-15] MEDS: Sod Chloride 0.9% Inj 1,000 ML IV.CONT SCH ×2 (01:38→19:36)
[2018-03-15] MEDS: Enoxaparin Inj 30 MG/0.3 ML Syringe SQ SCH ×2 (04:36→17:43)
[2018-03-15] MEDS: Metoclopramide 10 MG Tablet PO SCH ×4 (09:10→22:19)
[2018-03-15] MEDS: levETIRAcetam 500 MG Tablet PO SCH ×2 (09:11→21:17)
[2018-03-15] MEDS: Senna/Docusate Sodium 8.6/50 MG Tablet PO SCH ×2 (09:13→21:17)
[2018-03-15] MEDS: Lidocaine 5% Patch T-DERMAL SCH (09:14)
--- NOTE | 2018-03-15 09:14 | XR ---
EXAM DATE: 03/15/2018 9:10 AM EST AGE/SEX: 22 years / Male INDICATIONS: Evaluate for pleural effusion. CLINICAL DATA: This is the patient's subsequent encounter. Patient reports that signs and symptoms h ave been present for 1 week and indicates a pain score of 6/10. MEDICAL/SURGICAL HISTORY: None. None. COMPARISON: [facility] [place] THORACENTES[place] RIGHT W INSERT, 03/13/2018. . FINDINGS: There is consolidation in the medial left lower lobe. There is better aeration in this area than seen on previous. There is a small bore chest tube in place at the right lung base. There is no pneumotho rax identified. The heart is normal in size. Note is made of fractures of the anterior third and fourth ribs. CONCLUSION: Small bore chest tube on the right. No pneumothorax identified. Continued consolidation at the left lung base though somewhat improved compared to previous. Electronically signed by: Jamie Shanks MD 03/15/2018 9:13 AM EST
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
[2018-03-16] MEDS: Enoxaparin Inj 30 MG/0.3 ML Syringe SQ SCH ×2 (05:12→15:57)
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
[2018-03-16] MEDS: Lidocaine 5% Patch T-DERMAL SCH (09:37)
[2018-03-16] MEDS: levETIRAcetam 500 MG Tablet PO SCH ×2 (09:37→21:53)
[2018-03-16] MEDS: Metoclopramide 10 MG Tablet PO SCH ×4 (09:37→21:53)
[2018-03-16] MEDS: Senna/Docusate Sodium 8.6/50 MG Tablet PO SCH ×2 (09:38→21:52)
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
[2018-03-16] MEDS: Megestrol Acetate Liq 400 MG/10 ML UDC PO SCH (17:06)
[2018-03-16] MEDS: Sod Chloride 0.9% Inj 1,000 ML IV.CONT SCH (17:59)
[2018-03-17 04:29] LABS: Baso # (Auto) 0.1 th/mm3 (0.0-0.2); Baso % (Auto) 0.8 % (0.0-2.0); Eos # (Auto) 0.2 th/mm3 (0.0-0.4); Eos % (Auto) 2.4 % (0.0-4.0); Hemoglobin 11.6 gm/dL (13.0-17.0); Lymph # (Auto) 1.5 th/mm3 (1.0-4.8); Lymph % (Auto) 20.3 % (9.0-44.0); Mean Corpuscular Hemoglobin 28.2 pg (27.0-34.0); Mean Corpuscular Volume 82.8 fL (80.0-100.0); Mono # (Auto) 0.6 th/mm3 (0.0-0.9); Mono % (Auto) 8.1 % (0.0-8.0); Neut # (Auto) 5.1 th/mm3 (1.8-7.7); Neut % (Auto) 68.4 % (16.0-70.0); Platelet Count 433 th/mm3 (150-450); Red Cell Distribution Width 15.7 % (11.6-17.2); White Blood Count 7.4 th/mm3 (4.0-11.0)
[2018-03-17 04:52] LABS: Anion Gap 6 meq/L (5-15); Blood Urea Nitrogen 14 mg/dL (7-18); Calcium 8.6 mg/dL (8.5-10.1); Carbon Dioxide 30.2 meq/L (21.0-32.0); Chloride 99 meq/L (98-107); Glomerular Filtration Rate Greater Than 89 mL/min (>89); Glucose,Random 107 mg/dL (74-106); Potassium 4.2 meq/L (3.5-5.1); Sodium 135 meq/L (136-145)
[2018-03-17] MEDS: Enoxaparin Inj 30 MG/0.3 ML Syringe SQ SCH ×2 (04:59→17:37)
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
[2018-03-17] MEDS: Lidocaine 5% Patch T-DERMAL SCH (09:26)
[2018-03-17] MEDS: Metoclopramide 10 MG Tablet PO SCH ×4 (09:26→21:59)
[2018-03-17] MEDS: Senna/Docusate Sodium 8.6/50 MG Tablet PO SCH ×2 (09:26→21:59)
[2018-03-17] MEDS: levETIRAcetam 500 MG Tablet PO SCH ×2 (09:27→21:57)
[2018-03-17] MEDS: Megestrol Acetate Liq 400 MG/10 ML UDC PO SCH (09:27)
--- NOTE | 2018-03-17 14:25 | IR ---
EXAM DATE: 03/17/2018 1:57 PM EST AGE/SEX: 22 years / Male INDICATIONS: CHEST TUBE PLACED FOR HEMOTHORAX, COMPARISON: [facility], CHEST 1V SINGLE AP, 03/16/2018. . DEVICE(S): Vaseline occlusive dressing AMY AND TAPE PROCEDURE: 1. Chest tube removal. Using aseptic technique the previously placed chest tube was easily removed in one piece and Vaseline gauze and sterile dressing was applied. Chest radiograph is to be obtained. CONCLUSION: 1. Uncomplicated right chest tube removal. Electronically signed by: Cesar Chavez MD 03/17/2018 2:23 PM EST
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
[2018-03-18 03:48] VITALS: PULSE 90; RESP 18
[2018-03-18 04:37] LABS: Baso # (Auto) 0.1 th/mm3 (0.0-0.2); Baso % (Auto) 0.9 % (0.0-2.0); Eos # (Auto) 0.1 th/mm3 (0.0-0.4); Hematocrit 36.4 % (39.0-51.0); Hemoglobin 12.3 gm/dL (13.0-17.0); Lymph # (Auto) 1.8 th/mm3 (1.0-4.8); Lymph % (Auto) 24.6 % (9.0-44.0); Mean Corpuscular HGB Conc 33.7 % (32.0-36.0); Mean Corpuscular Hemoglobin 27.9 pg (27.0-34.0); Mean Corpuscular Volume 82.9 fL (80.0-100.0); Mono # (Auto) 0.6 th/mm3 (0.0-0.9); Mono % (Auto) 8.4 % (0.0-8.0); Neut # (Auto) 4.7 th/mm3 (1.8-7.7); Neut % (Auto) 64.1 % (16.0-70.0); Platelet Count 447 th/mm3 (150-450); Red Blood Count 4.39 mil/mm3 (4.50-5.90); Red Cell Distribution Width 15.4 % (11.6-17.2); White Blood Count 7.3 th/mm3 (4.0-11.0)
[2018-03-18 05:07] LABS: Anion Gap 8 meq/L (5-15); Blood Urea Nitrogen 14 mg/dL (7-18); Carbon Dioxide 27.7 meq/L (21.0-32.0); Chloride 100 meq/L (98-107); Glomerular Filtration Rate Greater Than 89 mL/min (>89); Glucose,Random 95 mg/dL (74-106); Potassium 3.9 meq/L (3.5-5.1); Sodium 136 meq/L (136-145)
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
[2018-03-18] MEDS: Enoxaparin Inj 30 MG/0.3 ML Syringe SQ SCH ×2 (05:24→16:16)
[2018-03-18] MEDS: levETIRAcetam 500 MG Tablet PO SCH (08:39)
[2018-03-18] MEDS: Lidocaine 5% Patch T-DERMAL SCH (08:40)
[2018-03-18] MEDS: Metoclopramide 10 MG Tablet PO SCH ×2 (08:40→12:57)
[2018-03-18] MEDS: Senna/Docusate Sodium 8.6/50 MG Tablet PO SCH (08:41)
[2018-03-18] MEDS: Megestrol Acetate Liq 400 MG/10 ML UDC PO SCH (08:41)
[2018-03-18 13:12] VITALS: BP 119/69; TEMP 97.8; O2SAT 97
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
== END 2018-03-18 17:29 | disposition home or self-care (01) ==
LOC: NEPI 08:23 → EDBD 09:28 → N03 09:28 → N07 03-09 16:16
PROVIDERS: ADMIT Surgery; ATTEND Surgery
DX: S22.039A Unspecified fracture of third thoracic vertebra, initial encounter for closed fracture; E87.70 Fluid overload, unspecified; Y92.410 Unspecified street and highway as the place of occurrence of the external cause; S06.5X9A Traumatic subdural hemorrhage with loss of consciousness of unspecified duration, initial encounter; S06.2X9A Diffuse traumatic brain injury with loss of consciousness of unspecified duration, initial encounter; S32.402A Unspecified fracture of left acetabulum, initial encounter for closed fracture; S27.321A Contusion of lung, unilateral, initial encounter; J96.90 Respiratory failure, unspecified, unspecified whether with hypoxia or hypercapnia; S22.049A Unspecified fracture of fourth thoracic vertebra, initial encounter for closed fracture; J90 Pleural effusion, not elsewhere classified; S27.0XXA Traumatic pneumothorax, initial encounter; S22.029A Unspecified fracture of second thoracic vertebra, initial encounter for closed fracture; S22.41XA Multiple fractures of ribs, right side, initial encounter for closed fracture; V44.6XXA Car passenger injured in collision with heavy transport vehicle or bus in traffic accident, initial encounter; S01.01XA Laceration without foreign body of scalp, initial encounter; S32.452A Displaced transverse fracture of left acetabulum, initial encounter for closed fracture; S06.6X9A Traumatic subarachnoid hemorrhage with loss of consciousness of unspecified duration, initial encounter; E87.6 Hypokalemia; R45.1 Restlessness and agitation; F01.51 Vascular dementia, unspecified severity, with behavioral disturbance; S02.19XA Other fracture of base of skull, initial encounter for closed fracture; S02.40EA Zygomatic fracture, right side, initial encounter for closed fracture; R56.9 Unspecified convulsions; G47.00 Insomnia, unspecified